=== PATIENT | male | born 1940 | race Caucasian/White ===

== ENCOUNTER 2017-07-23 22:10 | Emergency (ER) | payer BC ==
[2017-07-23 22:17] VITALS: BP 196/112; PULSE 53; TEMP 97.9; BMI 22.6
--- NOTE | 2017-07-23 22:51 | PDOC ---
History of Present Illness - General History Source: Patient Exam Limitations: No Limitations - History of Present Illness Initial Comments: 07/24/17 01:44 Patient is a 77 year old male with a significant past medical history of HTN who presents to the ED with complaints of superpubic tenderness that began earlier this week. Patient reports sitting on cough when he began to experience sudden onset of superpubic pain with no signs of subsiding. He reports superpubic pain is a localized hurting pain, that he states decreases when leaning over and increases when lying flat. Patient reports experiencing urinary frequency secondary to superpubic pain stating Nelida urinated 4 times since i've been in the ED. Denies chest pain, SOB. Denies nausea, vomiting. Denies fever, chills. Denies headache, dizziness. Denies trauma to affected area. Denies dysuria, hematuria, constipation. Denies any other symptoms. Allergies: None Social history: Former smoker (Last 1971). Social drinker. No illicit drugs. Surgical history: None PMD: Surinder <Zay Cobb - Last Filed: 07/24/17 01:44> <Bucky Crawley - Last Filed: 07/26/17 09:59> - General Chief Complaint: Pain, Acute Stated Complaint: ABD PAIN Time Seen by Provider: 07/23/17 22:50 Past History <Zay Cobb - Last Filed: 07/24/17 01:44> - Past Medical History COPD: No HTN: Yes - Suicide/Smoking/Psychosocial Hx Smoking History: Former smoker Have you smoked in the past 12 months: No Number of Cigarettes Smoked Daily: 20 If you are a former smoker, when did you quit?: 1971 Information on smoking cessation initiated: No Hx Alcohol Use: Yes (2 SHOTS A DAY) Drug/Substance Use Hx: No Substance Use Type: None <Bucky Crawley - Last Filed: 07/26/17 09:59> - Past Medical History Allergies/Adverse Reactions: Allergies Allergy/AdvReac Type Severity Reaction Status Date / Time No Known Allergies Allergy Verified 07/23/17 22:17 Home Medications: Ambulatory Orders Ibuprofen 600 mg PO TID #30 tablet 07/24/17 Review of Systems - Review of Systems Able to Perform ROS?: Yes Comments:: 07/24/17 01:44 GENERAL/CONSTITUTIONAL: No fever or chills. No weakness. HEAD, EYES, EARS, NOSE AND THROAT: No change in vision. No ear pain or discharge. No sore throat. CARDIOVASCULAR: No chest pain or shortness of breath. RESPIRATORY: No cough, wheezing, or hemoptysis. GASTROINTESTINAL: No nausea, vomiting, diarrhea or constipation. GENITOURINARY: No dysuria, frequency, or change in urination. MUSCULOSKELETAL: +Superpubic pain. No joint or muscle swelling. No neck or back pain. SKIN: No rash NEUROLOGIC: No headache, vertigo, loss of consciousness, or change in strength/ sensation. ENDOCRINE: No increased thirst. No abnormal weight change. HEMATOLOGIC/LYMPHATIC: No anemia, easy bleeding, or history of blood clots. ALLERGIC/IMMUNOLOGIC: No hives or skin allergy. All Other Systems: Reviewed and Negative <Zay Cobb - Last Filed: 07/24/17 01:44> *Physical Exam - Vital Signs Last Vital Signs Temp Pulse Resp BP Pulse Ox 97.9 F 53 L 20 196/112 98 07/23/17 22:13 07/23/17 22:13 07/23/17 22:13 07/23/17 22:13 07/23/17 22:13 - Physical Exam Comments: 07/24/17 01:44 GENERAL: Awake, alert, and fully oriented, in no acute distress HEAD: No signs of trauma EYES: PERRLA, EOMI, sclera anicteric, conjunctiva clear ENT: Auricles normal inspection, hearing grossly normal, nares patent, oropharynx clear without exudates. Moist mucosa NECK: Normal ROM, supple, no lymphadenopathy, JVD, or masses LUNGS: Breath sounds equal, clear to auscultation bilaterally. No wheezes, and no crackles HEART: Regular rate and rhythm, normal S1 and S2, no murmurs, rubs or gallops ABDOMEN: +Equal femoral pulses side to side. No pulsatile mass. No bruits. No clinical evidence of abdominal aortic aneurysm. Soft, nontender, normoactive bowel sounds. No guarding, no rebound. No masses EXTREMITIES: Normal range of motion, no edema. No clubbing or cyanosis. No cords, erythema, or tenderness NEUROLOGICAL: Cranial nerves II through XII grossly intact. Normal speech, normal gait SKIN: Warm, Dry, normal turgor, no rashes or lesions noted. <Zay Cobb - Last Filed: 07/24/17 01:44> - Vital Signs Last Vital Signs Temp Pulse Resp BP Pulse Ox 97.9 F 53 L 20 196/112 98 07/23/17 22:13 07/23/17 22:13 07/23/17 22:13 07/23/17 22:13 07/23/17 22:13 <Bucky Crawley - Last Filed: 07/26/17 09:59> ED Treatment Course - LABORATORY CBC & Chemistry Diagram: 07/24/17 00:45 07/24/17 00:45 - ADDITIONAL ORDERS Additional order review: Laboratory Results 07/24/17 07/24/17 07/24/17 00:45 00:45 00:45 PT with INR 10.40 INR 0.92 Sodium 141 Potassium 3.6 Chloride 104 Carbon Dioxide 27 Anion Gap 10 BUN 18 Creatinine 0.9 Creat Clearance w eGFR > 60 Random Glucose 100 Lactic Acid 1.5 Calcium 9.2 Total Bilirubin 0.5 D AST 26 D ALT 28 D Alkaline Phosphatase 84 Total Protein 7.2 Albumin 3.9 Urine Color Urine Appearance Urine pH Ur Specific [place] Urine Protein Urine Glucose (UA) Urine Ketones Urine Blood Urine Nitrite Urine Bilirubin Urine Urobilinogen 07/23/17 23:02 PT with INR INR Sodium Potassium Chloride Carbon Dioxide Anion Gap BUN Creatinine Creat Clearance w eGFR Random Glucose Lactic Acid Calcium Total Bilirubin AST ALT Alkaline Phosphatase Total Protein Albumin Urine Color Colorless Urine Appearance Clear Urine pH 8.0 Ur Specific [place] 1.006 Urine Protein Negative Urine Glucose (UA) Negative Urine Ketones Negative Urine Blood Negative Urine Nitrite Negative Urine Bilirubin Negative Urine Urobilinogen Negative 07/24/17 00:45 RBC 4.94 MCV 90.4 MCHC 34.1 RDW 14.5 MPV 9.7 Neutrophils % 77.2 Lymphocytes % 10.4 D Monocytes % 7.7 Eosinophils % 4.1 D Basophils % 0.6 <Zay Cobb - Last Filed: 07/24/17 01:44> - LABORATORY CBC & Chemistry Diagram: 07/24/17 00:45 07/24/17 00:45 <Bucky Crawley - Last Filed: 07/26/17 09:59> *DC/Admit/Observation/Transfer - Attestations Scribe Attestion: 07/24/17 01:44 Documentation prepared by Zay Cobb, acting as general medical practitioner for Bucky Crawley MD/. <Zay Cobb - Last Filed: 07/24/17 01:44> - Attestations Physician Attestion: 07/23/17 22:51 I, Dr. Bucky Crawley, attest that this document has been prepared under my direction and personally reviewed by me in its entirety. I further attest, that it accurately reflects all work, treatment, procedures and medical decision -making performed by me. <Bucky Crawley - Last Filed: 07/26/17 09:59> Diagnosis at time of Disposition: Kidney stone on left side Hydronephrosis Qualifiers: Hydronephrosis type: unspecified Qualified Code(s): N13.30 - Unspecified hydronephrosis - Discharge Dispostion Disposition: HOME Condition at time of disposition: Stable - Prescriptions Prescriptions: Ibuprofen 600 mg PO TID #30 tablet - Referrals Referrals: Lanre Corey MD [Primary Care Provider] - Dex Lynn MD., [Staff Physician] - - Patient Instructions Printed Discharge Instructions: DI for Kidney Stones Additional Instructions: Please follow up with your urologist or the one referred to you in the department. Please take medication as directed. Return if any problems - Post Discharge Activity
[2017-07-23 23:25] LABS: URINE APPEARANCE CLEAR; URINE BILIRUBIN NEGATIVE (NEGATIVE); URINE BLOOD NEGATIVE (NEGATIVE); URINE COLOR COLORLESS; URINE GLUCOSE (UA) NEGATIVE (NEGATIVE); URINE KETONE NEGATIVE (NEGATIVE); URINE LEUK ESTERASE NEGATIVE (NEGATIVE); URINE NITRITE NEGATIVE (NEGATIVE); URINE PROTEIN NEGATIVE (NEGATIVE); URINE UROBILINOGEN NEGATIVE mg/dL (0.2-1.0)
[2017-07-24 00:58] LABS: BASO # 0.1 # (0.1-1); BASO % 0.6 % (0-2.0); EOS # 0.4 # (0-4.5); EOS % 4.1 % (0-4.5); LYMPH # 0.9 (8-40); MCH 30.8 pg (25.7-33.7); MCHC 34.1 g/dl (32.0-35.9); MEAN CELL VOLUME 90.4 fl (80-96); MEAN PLT VOLUME 9.7 fl (7.5-11.1); MONO # 0.7 # (3.8-10.2); NEUT # 6.6 # (42.8-82.8); NEUT % 77.2 % (42.8-82.8); PLATELET COUNT 188 K/MM3 (134-434); RDW 14.5 % (11.9-15.9); WHITE BLOOD COUNT 8.6 K/mm3 (4.0-10.0)
[2017-07-24 01:14] LABS: INR 0.92 (0.82-1.09); PROTHROMBIN TIME (PATIENT) 10.4 SEC (9.98-11.88)
[2017-07-24 01:16] LABS: ALBUMIN 3.9 g/dl (3.4-5.0); ALK PHOS 84 U/L (45-117); ANION GAP 10 (8-16); BILIRUBIN,TOTAL 0.5 mg/dL (0.2-1.0); CALCIUM 9.2 mg/dL (8.5-10.1); CO2 27 mmol/L (21-32); CREATININE 0.9 mg/dL (0.7-1.3); GLUCOSE,RANDOM 100 mg/dL (74-106); SGOT/AST 26 U/L (15-37); SGPT/ALT 28 U/L (12-78); TOT PROT 7.2 g/dl (6.4-8.2)
--- NOTE | 2017-07-24 04:56 | PDOC ---
*Physical Exam - Vital Signs Last Vital Signs Temp Pulse Resp BP Pulse Ox 97.9 F 53 L 20 196/112 98 07/23/17 22:13 07/23/17 22:13 07/23/17 22:13 07/23/17 22:13 07/23/17 22:13 ED Treatment Course - LABORATORY CBC & Chemistry Diagram: 07/24/17 00:45 07/24/17 00:45 - ADDITIONAL ORDERS Additional order review: Laboratory Results 07/24/17 07/24/17 07/24/17 00:45 00:45 00:45 PT with INR 10.40 INR 0.92 Sodium 141 Potassium 3.6 Chloride 104 Carbon Dioxide 27 Anion Gap 10 BUN 18 Creatinine 0.9 Creat Clearance w eGFR > 60 Random Glucose 100 Lactic Acid 1.5 Calcium 9.2 Total Bilirubin 0.5 D AST 26 D ALT 28 D Alkaline Phosphatase 84 Total Protein 7.2 Albumin 3.9 Urine Color Urine Appearance Urine pH Ur Specific [place] Urine Protein Urine Glucose (UA) Urine Ketones Urine Blood Urine Nitrite Urine Bilirubin Urine Urobilinogen 07/23/17 23:02 PT with INR INR Sodium Potassium Chloride Carbon Dioxide Anion Gap BUN Creatinine Creat Clearance w eGFR Random Glucose Lactic Acid Calcium Total Bilirubin AST ALT Alkaline Phosphatase Total Protein Albumin Urine Color Colorless Urine Appearance Clear Urine pH 8.0 Ur Specific [place] 1.006 Urine Protein Negative Urine Glucose (UA) Negative Urine Ketones Negative Urine Blood Negative Urine Nitrite Negative Urine Bilirubin Negative Urine Urobilinogen Negative 07/24/17 00:45 RBC 4.94 MCV 90.4 MCHC 34.1 RDW 14.5 MPV 9.7 Neutrophils % 77.2 Lymphocytes % 10.4 D Monocytes % 7.7 Eosinophils % 4.1 D Basophils % 0.6 *DC/Admit/Observation/Transfer Diagnosis at time of Disposition: Kidney stone on left side Hydronephrosis Qualifiers: Hydronephrosis type: unspecified Qualified Code(s): N13.30 - Unspecified hydronephrosis - Discharge Dispostion Disposition: HOME Condition at time of disposition: Stable Admit: No - Referrals Referrals: Lanre Corey MD [Primary Care Provider] - Dex Lynn MD., MD [Staff Physician] - - Patient Instructions Printed Discharge Instructions: DI for Kidney Stones Additional Instructions: Please follow up with your urologist or the one referred to you in the department. Please take medication as directed. Return if any problems - Post Discharge Activity
[2017-07-24 11:33] LABS: URINE LEUK ESTERASE Negative (NEGATIVE)
== END 2017-07-24 05:06 | disposition home or self-care (01) ==
LOC: JER 22:10
DX: N13.2 Hydronephrosis with renal and ureteral calculous obstruction (principal)
CPT/HCPCS: 36415; 74176-TC; 80053; 81003; 83605; 85025; 85610; 87040; 87086; 99283-25

== ENCOUNTER 2017-09-17 05:12 | Day surgery (SDC) | payer BC ==
[2017-09-17 07:00] VITALS: TEMP 97.5; BMI 22.4
[2017-09-17] MEDS ORDERED: DEXAMETHASONE SOD PHOSPHATE 4 MG/1 ML VIAL ONE (08:43)
[2017-09-17] MEDS ORDERED: LIDOCAINE HCL/PF 2% SDV 5ML VIAL ONE (08:46)
[2017-09-17] MEDS ORDERED: PROPOFOL 20 ML ONE (08:46)
[2017-09-17] MEDS ORDERED: ePHEDrine SULFATE 50 MG/1 ML AMPULE ONE (08:59)
[2017-09-17] MEDS ORDERED: GLYCOPYRROLATE 0.2 MG/1 ML VIAL ONE (09:05)
[2017-09-17] MEDS ORDERED: IOHEXOL 180 MG/1 ML ML IT ONE (09:37)
[2017-09-17] MEDS ORDERED: oxyCODONE HCL 5 MG TABLET PO PRN (09:38)
--- NOTE | 2017-09-17 09:38 | OP ---
Operative Note - Note: Operative Date: 09/17/17 Pre-Operative Diagnosis: obstructing left distal ureteral stone Operation: cysto/left retrograde/ureteroscopy/laser lithotripsy/stone basketing/ stent Findings: obstructing 8mm LDU stone Post-Operative Diagnosis: Same as Pre-op Surgeon: Anthony Viveros Anesthesia: General Specimens Removed: stone frags Estimated Blood Loss (mls): 5 Drains & Tubes with Location: 7fr 24cm stent Operative Report Dictated: Yes
[2017-09-17] MEDS ORDERED: ONDANSETRON 4 MG/2 ML VIAL IVPUSH PRN (09:44)
[2017-09-17] MEDS ORDERED: ELECTROLYTE-148 SOLN 1,000 ML IV SCH (09:45)
[2017-09-17] MEDS ORDERED: LACTATED RINGERS SOLUTION 1,000 ML IV SCH (09:45)
[2017-09-17 10:38] VITALS: BP 134/77; PULSE 81
--- NOTE | 2017-09-17 10:52 | OP ---
DATE OF OPERATION: 09/17/2017 PREOPERATIVE DIAGNOSIS: Obstructing left distal ureteral stone. POSTOPERATIVE DIAGNOSIS: Obstructing left distal ureteral stone. PROCEDURE: Cystoscopy, ureteroscopy, laser lithotripsy, stone basketing, stent placement. SURGEON: Anthony Viveros MD INDICATIONS: Patient is a 77-year-old male with obstructing left distal ureteral stone, approximately 8 mm in size. After reviewing treatment options, he elected to undergo ureteroscopy and laser lithotripsy. Risks, benefits, and alternatives were discussed. DESCRIPTION OF PROCEDURE: The patient was taken to the OR, placed supine on the OR table. With cardiac monitoring administered and general anesthesia established, he was prepped and draped in dorsal lithotomy position. He was given 500 mg of IV Levaquin. At this point, the rigid cystoscope was introduced without difficulty. The anterior urethra was normal, prostatic urethra was 3 cm and visually occlusive. The bladder was visualized. Multiple small stones were noted in the bladder, and these were evacuated. Attention was then turned to the left ureteral orifice. It was intubated with the ureteral catheter. Contrast was injected for retrograde pyelogram. There was hydronephrosis down to the level of the distal ureter, where a calcified stone was seen. Guidewire was negotiated beyond the stone. Alongside the guidewire, a semi-rigid ureteroscope was advanced into the distal ureter where the stone was seen, somewhat impacted in the distal ureter. Using the 365 micron laser fiber, the stone was pulverized into fine dust of 1- to 2-mm fragments at a setting of 0.8 joules and 6 htz until the entire stone bulging was fragmented. Several fragments were removed with the stone basket and sent to Pathology for analysis. Repeat ureteroscopy revealed no other evidence of any residual large stone fragments. Ureteroscope was then removed, and a 7-Polish 24-cm double pigtail stent was then advanced in a monorail fashion. Fluoroscopy confirmed this stent to be in good position. Patient was awoken from anesthesia and transferred to recovery room in stable condition. There were no complications. ESTIMATED BLOOD LOSS: Minimal. Fernando [id number]
[2017-09-17] MEDS ORDERED: oxyCODONE HCL 5 MG TABLET ONE (11:50)
--- NOTE | 2017-09-18 16:35 | PATH ---
Surgical Pathology Report Patient Name: ERNESTO NARVAEZ [facility]. Rec. #: [id number] /Age/Gender: 1940 (Age: 77) / M Account: [id number] Location: [facility] SURGICAL Taken: 09/17/2017 Received: 09/17/2017 Reported: 09/18/2017 Physicians: Anthony Viveros M.D. Specimen(s) Received RENAL STONE Clinical History Left ureteral stones, renal stones Final Diagnosis RENAL STONES, REMOVAL/PASSAGE: RENAL CALCULI. MACROSCOPIC DIAGNOSIS. Electronically Signed Katie Ceja M.D. Gross Description Received fresh labeled "renal stones," is a 1.0 x 0.8 x 0.2 cm aggregate of pablo, fragmented calculi. The specimen is sent for chemical analysis. 09/17/201709/17/2017
[2017-09-29 14:14] LABS: CA OXALATE MONOHYDR. 10 % (.); CALCIUM PHOSPHATE 40 % (.); WEIGHT 66.2 mg (.)
== END 2017-09-17 14:45 | disposition home or self-care (01) ==
LOC: JASU-SURG 05:12
PROVIDERS: ATTEND Urology
PROC: 0TF78ZZ Fragmentation in Left Ureter, Via Natural or Artificial Opening Endoscopic (ICD-10-PCS; principal; 2017-09-17 08:15)
PROC: 0T778DZ Dilation of Left Ureter with Intraluminal Device, Via Natural or Artificial Opening Endoscopic (ICD-10-PCS; 2017-09-17 08:15)
DX: N20.1 Calculus of ureter (principal)
CPT/HCPCS: 36415; 76000-TC-FY; 82360; 88300-TC; 94760

== ENCOUNTER 2018-11-13 23:30 | Emergency (ER) | payer BC, OTHER ==
--- NOTE | 2018-11-13 23:33 | PDOC ---
History of Present Illness - General Chief Complaint: Injury Stated Complaint: FALL Time Seen by Provider: 11/13/18 23:33 History Source: Patient, Family Exam Limitations: No Limitations - History of Present Illness Initial Comments: 11/13/18 23:34 Mr. Peters is a 78 yo M with a h/o HTn who presents to the ER with family s/p a fall from standing height Pt was at the [employer] and was going to get his vehicle outside. It was dark and he lost his footing, falling forward He struck his face and his hand No LOC No Amnesia He assisted himself to standing and returned into the facility to alert his family He denies preceding chest pain, shortness of breath, palpitations, focal weakness or numbness He currently denies pain but his family is concerned about his nose which appears to be deformed to them AND was bleeding at the facility He also notes that his left hand has bruising Tetanus 2015 Denies chest pain, SOB. Denies nausea, vomiting. Denies fever, chills. Denies headache, dizziness. Denies trauma to affected area. Denies dysuria, hematuria, constipation. Denies any other symptoms. Allergies: None Social history: Former smoker (Last 1971). Social drinker. No illicit drugs. Surgical history: None PMD: Surinder ROS: GENERAL/CONSTITUTIONAL: No: fever, chills, weakness, loss of appetite. HEAD, EYES, EARS, NOSE AND THROAT: No: change in vision, ear pain, discharge, sore throat, throat swelling. CARDIOVASCULAR: No: chest pain, lightheadedness, palpitations, syncope RESPIRATORY: No: cough, shortness of breath, wheezing, hemoptysis, stridor. GASTROINTESTINAL: No: nausea, vomiting, diarrhea, abdominal pain GENITOURINARY: No: dysuria, hematuria, frequency, urgency, flank pain. MUSCULOSKELETAL: No: back pain, neck pain, joint pain, muscle swelling or pain SKIN: No: lesions, pallor, rash or easy bruising. NEUROLOGIC: No: headache, vertigo, paresthesias, weakness ENDOCRINE: No: unexplained weight gain or loss HEMATOLOGIC/LYMPHATIC: No: anemia, easy bleeding, swelling nodes. PE: GENERAL: The patient is in no acute distress. HEAD: (+) facial trauma EYES: PERRLA (4mm --> 2mm), EOMI, sclera anicteric, conjunctiva clear. ENT: Ears normal, no small sign, no periorbital bruising, nasal bridge swollen , dried blood at nares superficial abrasion bottom lip 8mm laceration to right lower lip mucosa No loose teeth Bite normal NECK: Normal range of motion, supple without midline tenderness or deformity. LUNGS: Breath sounds equal, clear to auscultation bilaterally. No wheezes, and no crackles. HEART:Regular rate and rhythm, normal S1 and S2 without murmur, rub or gallop. ABDOMEN: Soft, nontender, No guarding, no rebound EXTREMITIES: Normal range of motion (except right shoulder which is arthritic and is limited), Left thenar eminence bruising noted R/M/U motor and sensory function nml No snuff box tenderness, no wrist tenderness NEUROLOGICAL: Cranial nerves II through XII grossly intact. Normal speech. No focal neurological deficits. Hard of hearing MUSCULOSKELETAL: no thoracic or lumbar tenderness to palpation, no rib tenderness to palpation SKIN: abrasion skin beneath right lower lip Bruising thenar eminence left hand 11/13/18 23:45 11/13/18 23:56 Past History - Past Medical History Allergies/Adverse Reactions: Allergies Allergy/AdvReac Type Severity Reaction Status Date / Time No Known Allergies Allergy Verified 09/17/17 06:47 Home Medications: Ambulatory Orders Amlodipine Besylate/Benazepril [Lotrel 5-10 mg Capsule] 1 each PO DAILY Atorvastatin Ca [Lipitor] 10 mg PO HS 09/14/17 Flaxseed/Omega3,6,9/Fatty Acid [Flax Seed Oil 1,300 mg Softgel] 1 each PO DAILY 09/14/17 Multivitamin [One Daily] 1 each PO DAILY 09/14/17 [place]-3S/Dha/Epa/Fish Oil [Fish Oil [place]-3 Softgel] 1 each PO DAILY 09/14/17 Aspirin Coated [Ecotrin -] 81 mg PO DAILY 09/17/17 Anemia: No Asthma: No Cancer: No Cardiac Disorders: No CVA: No COPD: No CHF: No Dementia: No Diabetes: No GI Disorders: No Disorders: No HTN: Yes Hypercholesterolemia: Yes Liver Disease: No Seizures: No Thyroid Disease: No - Immunization History Immunization Up to Date: Yes - Suicide/Smoking/Psychosocial Hx Smoking History: Never smoked Have you smoked in the past 12 months: No Number of Cigarettes Smoked Daily: 20 If you are a former smoker, when did you quit?: 1971 Hx Alcohol Use: Yes (1 day) Drug/Substance Use Hx: No Substance Use Type: None Hx Substance Use Treatment: No Medical Decision Making - Medical Decision Making 11/13/18 23:51 78 yo M h/o HTN on NO ANTICOAGULANTS who presents s/p mechanical fall this evening while walking in the dark to find his car No LOC, No Amnesia Pt with signs of facial trauma will do: CT head/C spine/Facial bones Boostrix Left hand non tender but bruised will advise they follow up for x ray if there is any pain Pt refusing tylenol Anticipate discharge 11/14/18 00:22 CT HEAD: FINDINGS: Brain parenchyma is normal in attenuation with no mass or hematoma. There is no midline shift. Z[place] and white matter differentiation is normal. Ventricles are mildly prominent Sulci and extra-axial CSF spaces are normal. Intracranial vascular structures are normal in attenuation. There is no calvarial fracture. Paranasal sinuses are normally aerated. IMPRESSION: Mild atrophic change CT CERVICAL SPINE: HISTORY: Trauma COMPARISON: None. FINDINGS: Vertebral bodies appear normal with no fracture There are degenerative changes with intervertebral disc space narrowing at the level of C3-C7 Airway is intact Soft Tissues are normal Pulmonary apices are normal IMPRESSION: Degenerative changes with no cervical spine fracture CT FACIAL BONES: HISTORY: Trauma COMPARISON: None. FINDINGS: Nasal Bones: no fracture Orbits and globes: normal Zygomatic areches: Normal with no fracture Mandaible:Normal with no fracture Soft tissues: There is soft tissue thickening overlying the nasal bridge and the nasal bones and involving the nasal septum. There is no associated displaced fracture IMPRESSION: Soft tissue thickening involving the nose likely related to hematoma without fracture 11/14/18 00:27 Will discharge to home Follow up with PMD Tylenol for pain *DC/Admit/Observation/Transfer Diagnosis at time of Disposition: Swelling of nose Injury of head Qualifiers: Encounter type: initial encounter Qualified Code(s): S09.90XA - Unspecified injury of head, initial encounter Abrasion of lip Qualifiers: Encounter type: initial encounter Qualified Code(s): S00.511A - Abrasion of lip , initial encounter - Discharge Dispostion Disposition: HOME Condition at time of disposition: Stable Decision to Admit order: No - Referrals Referrals: Mirza Wood MD [Primary Care Provider] - - Patient Instructions Printed Discharge Instructions: DI for Closed Head Injury, How to Prevent Falls , DI for Abrasion Additional Instructions: Mr Peters, Thank you for coming in to the ER today So sorry that you fell Please apply ice to the bridge of your nose to help with the swelling The cut on the inside of your mouth will heal but it will be important to avoid getting food stuck in there Return to the emergency department immediately with ANY new or worsening symptoms. Continue any medications as previously prescribed by your physician. You should follow up with your primary doctor as soon as possible regarding today's emergency department visit. Please make sure your doctor reviews the results of your emergency evaluation. Thank you for coming to the [facility] today for your care. It was a pleasure to see you today. Please note that your evaluation is INCOMPLETE until you follow-up with your doctor. - Post Discharge Activity
[2018-11-13] MEDS ORDERED: DIPHTH,PERTUSS(ACELL),TET 0.5 ML DISP.SYRIN IM ONE ×2 (23:43→23:52)
[2018-11-13 23:51] VITALS: BP 133/84; PULSE 89; TEMP 98.4; BMI 22.4
[2018-11-13] MEDS ORDERED: REFRIGERATED ANITBIOTICS ONE (23:58)
== END 2018-11-14 00:37 | disposition home or self-care (01) ==
LOC: FER 23:30
DX: S09.90XA Unspecified injury of head, initial encounter (principal); Z87.891 Personal history of nicotine dependence; R22.0 Localized swelling, mass and lump, head; S00.511A Abrasion of lip, initial encounter; I10 Essential (primary) hypertension; E78.00 Pure hypercholesterolemia, unspecified; W17.89XA Other fall from one level to another, initial encounter; Y93.89 Activity, other specified; Y92.29 Other specified public building as the place of occurrence of the external cause
CPT/HCPCS: 70450-TC; 70486-TC; 72125-TC; 99282-25

== ENCOUNTER 2019-06-23 08:20 | Day surgery (SDC) | payer OTHER ==
[2019-06-22 12:26] VITALS: BMI 23.1
[2019-06-23] MEDS ORDERED: MIDAZOLAM HCL 2 MG/2 ML SINGLE DOSE VIAL ONE (08:50)
[2019-06-23] MEDS ORDERED: PROPOFOL 20 ML ONE ×2 (08:52→10:10)
[2019-06-23] MEDS ORDERED: DEXAMETHASONE SOD PHOSPHATE 4 MG/1 ML VIAL ONE ×2 (08:53→10:09)
[2019-06-23] MEDS ORDERED: KETOROLAC TROMETHAMINE 30 MG/1 ML VIAL ONE (08:53)
[2019-06-23] MEDS ORDERED: ONDANSETRON 4 MG/2 ML VIAL IVPUSH PRN (09:08)
[2019-06-23] MEDS ORDERED: LACTATED RINGERS SOLUTION 1,000 ML IV SCH (09:15)
[2019-06-23] MEDS ORDERED: ceFAZolin 2 GRAM PREMIX BAG IVPB ONE (09:32)
[2019-06-23] MEDS ORDERED: GENTAMICIN SO4 80 MG/2 ML VIAL IVPB ONE (09:34)
[2019-06-23] MEDS ORDERED: GLYCOPYRROLATE 0.2 MG/1 ML VIAL ONE (09:46)
[2019-06-23] MEDS ORDERED: SODIUM CHLORIDE 0.9% P/F 10 ML VIAL IJ ONE (09:56)
[2019-06-23] MEDS ORDERED: FUROSEMIDE 40 MG/4 ML INJECTABLE VIAL ONE (10:01)
[2019-06-23] MEDS ORDERED: SUCCINYLCHOLINE CHLORIDE 200 MG/10 ML SYRINGE ONE (10:01)
[2019-06-23] MEDS ORDERED: ROCURONIUM BROMIDE 50 MG/5 ML SYRINGE ONE (10:01)
[2019-06-23] MEDS ORDERED: LIDOCAINE HCL/PF 2% SDV 5ML VIAL ONE (10:09)
[2019-06-23] MEDS ORDERED: oxyCODONE HCL 5 MG TABLET PO PRN (10:49)
--- NOTE | 2019-06-23 10:51 | OP ---
Operative Note - Note: Operative Date: 06/23/19 Pre-Operative Diagnosis: bilateral ureteral stones Post-Operative Diagnosis: Same as Pre-op (plus bladder stone) Anesthesia: General Operative Report Dictated: Yes
[2019-06-23] MEDS ORDERED: ELECTROLYTE-148 SOLN 1,000 ML IV SCH (11:00)
--- NOTE | 2019-06-23 13:23 | OP ---
DATE OF OPERATION: 06/23/2019 PREOPERATIVE DIAGNOSIS: Bilateral ureteral stones. POSTOPERATIVE DIAGNOSIS: Left ureteral stone and bladder stone. PROCEDURE: Cystoscopy, bilateral retrograde pyelogram, bilateral ureteroscopy, bilateral ureteral stent placement, left laser lithotripsy and stone basketing, and laser lithotripsy of bladder stone. INDICATIONS: Patient is an 79-year-old male with a history of recurrent nephrolithiasis. Most recent CT scan showed a 1-cm stone in the left distal ureter causing hydronephrosis as well as stones in her right distal ureter causing hydronephrosis. He was taken to the OR for ureteroscopy, laser lithotripsy. Risks, benefits, and alternatives discussed. DESCRIPTION OF PROCEDURE: After informed consent was obtained, patient was taken to the OR and placed supine on the table. After cardiac monitoring administered and general anesthesia established, he was prepped and draped in the dorsal lithotomy position. The 23 sheath cystoscope was inserted without difficulty. Anterior urethra was normal. Prostatic urethra was 4 cm and visually occlusive. The bladder was then visualized. Approximately an 8-mm stone was seen in the bladder. Using the Holmium laser fiber, the stone was pulverized to fine dust in 2- to 3-mm fragments, and these were removed with the [employer] evacuator. With the bladder stone now removed, attention was turned to the left ureteral orifice. This was intubated with ureteral catheter. Contrast was injected for retrograde pyelogram. There was hydronephrosis down to the level of the distal ureter where a stone was seen. Guidewire was advanced beyond the stone, and a semirigid ureteroscope was advanced into the left distal ureter, and an approximately 6-mm stone was seen there, and this was pulverized to fine dust once we removed any fragments, and these fragments were then removed and sent to Pathology for analysis. Repeat left ureteroscopy revealed no residual stone fragments. Ureteroscope was then removed, and a 7-Malaysian 24-cm double pigtail stent was then passed in the left ureter. Fluoroscopy confirmed stent to be in good position. Attention was turned to the patient's right side. Contrast injected for retrograde pyelogram. There was some fullness in the collecting system but no stone noted or filling defect noted, but in light of the prior CAT scan findings, I elected to perform a ureteroscopy. The distal and mid ureter were inspected, and no stone was noted. Ureteroscope was then removed, and a 7-Malaysian 24-cm double pigtail stent was then advanced in a monorail fashion on the patient's right side. Again, fluoroscopy confirmed this to be in good position. Patient awoken from anesthesia and transferred to recovery in stable condition. There were no complications. Estimated blood loss was minimal. FIDEL ANDUJAR M.D. [id number]
[2019-06-23 16:49] VITALS: BP 121/60; PULSE 100; TEMP 97.5
--- NOTE | 2019-06-24 15:43 | PATH ---
Surgical Pathology Report Patient Name: ERNESTO NARVAEZ [facility]. Rec. #: [id number] /Age/Gender: 1940 (Age: 79) / M Account: [id number] Location: [facility] SURGICAL Taken: 06/23/2019 Received: 06/23/2019 Reported: 06/24/2019 Physicians: Anthony Viveros M.D. Specimen(s) Received URETERAL STONES Clinical History Calculus of ureter Final Diagnosis URETERAL STONES, LASER LITHOTRIPSY: URETEROLITHIASIS. MACROSCOPIC DIAGNOSIS. Electronically Signed Katie Ceja M.D. Gross Description Received in formalin labeled "ureteral stones," is a 2.1 x 1.8 x 0.4 cm aggregate of pablo, irregular to fragmented calculi. The formalin is drained and the specimen is dried and sent for chemical analysis. /06/23/2019 saudi06/23/2019
== END 2019-06-23 14:50 | disposition home or self-care (01) ==
LOC: JASU-SURG 08:20
PROVIDERS: ATTEND Urology
PROC: 0TCB8ZZ Extirpation of Matter from Bladder, Via Natural or Artificial Opening Endoscopic (ICD-10-PCS; principal; 2019-06-23 10:30)
PROC: 0TF78ZZ Fragmentation in Left Ureter, Via Natural or Artificial Opening Endoscopic (ICD-10-PCS; 2019-06-23 10:30)
PROC: 0TF68ZZ Fragmentation in Right Ureter, Via Natural or Artificial Opening Endoscopic (ICD-10-PCS; 2019-06-23 10:30)
PROC: 0T788DZ Dilation of Bilateral Ureters with Intraluminal Device, Via Natural or Artificial Opening Endoscopic (ICD-10-PCS; 2019-06-23 10:30)
DX: N20.1 Calculus of ureter (principal); N21.0 Calculus in bladder
CPT/HCPCS: 36415; 76000-TC-FY; 82360; 88300-TC; 94760

== ENCOUNTER 2019-07-04 14:19 | Observation (INO) | payer OTHER ==
--- NOTE | 2019-07-04 15:24 | PDOC ---
History of Present Illness - General Chief Complaint: Blood Pressure Problem Stated Complaint: SENT BY PCP/HYPERTENSION Time Seen by Provider: 07/04/19 14:47 History Source: Patient Exam Limitations: No Limitations Past History - Travel Traveled outside of the country in the last 30 days: No Close contact w/someone who was outside of country & ill: No - Past Medical History Allergies/Adverse Reactions: Allergies Allergy/AdvReac Type Severity Reaction Status Date / Time No Known Allergies Allergy Verified 07/04/19 14:28 Home Medications: Ambulatory Orders Unobtainable 07/05/19 Anemia: No Asthma: No Cancer: No Cardiac Disorders: No CVA: No COPD: No CHF: No Dementia: No Diabetes: No GI Disorders: No Disorders: No HTN: Yes Hypercholesterolemia: Yes Liver Disease: No Seizures: No Thyroid Disease: No - Immunization History Immunization Up to Date: Yes - Psycho Social/Smoking Cessation Hx Smoking History: Never smoked Have you smoked in the past 12 months: No Number of Cigarettes Smoked Daily: 20 If you are a former smoker, when did you quit?: 1972 Hx Alcohol Use: Yes (1 day) Drug/Substance Use Hx: No Substance Use Type: None Hx Substance Use Treatment: No Review of Systems - Review of Systems Able to Perform ROS?: Yes Comments:: 07/04/19 19:29 CONSTITUTIONAL: Absent: fever, chills, diaphoresis, generalized weakness, malaise, loss of appetite HEENT: Absent: rhinorrhea, nasal congestion, throat pain, throat swelling, difficulty swallowing, mouth swelling, ear pain, eye pain, visual Changes CARDIOVASCULAR: Absent: chest pain, loss of consciousness, palpitations, irregular heart rate, peripheral edema RESPIRATORY: Absent: cough, shortness of breath, dyspnea with exertion, orthopnea, wheezing, stridor, hemoptysis GASTROINTESTINAL: Absent: abdominal pain, abdominal distension, nausea, vomiting, diarrhea, constipation, melena, hematochezia GENITOURINARY: Absent: dysuria, frequency, urgency, hesitancy, hematuria, flank pain, genital pain MUSCULOSKELETAL: Absent: myalgia, arthralgia, joint swelling SKIN: Absent: rash, itching, pallor HEMATOLOGIC/IMMUNOLOGIC: Absent: easy bleeding, easy bruising, lymphadenopathy, frequent infections ENDOCRINE: Absent: unexplained weight gain, unexplained weight loss, heat intolerance, cold intolerance NEUROLOGIC: Present: Lightheadedness. Absent: headache, focal weakness or paresthesias, dizziness, unsteady gait, seizure, mental status changes, bladder or bowel incontinence PSYCHIATRIC: Absent: anxiety, depression, suicidal or homicidal ideation, hallucinations. Is the patient limited Kiswahili proficient: No *Physical Exam - Vital Signs Last Vital Signs Temp Pulse Resp BP Pulse Ox 97.3 F L 81 18 100/58 L 98 07/04/19 14:23 07/04/19 14:23 07/04/19 14:23 07/04/19 14:23 07/04/19 14:23 - Physical Exam 07/04/19 19:29 GENERAL: Well developed, well nourished. Awake and alert. No acute distress. HEENT: Normocephalic, atraumatic. PERRLA, EOMI. No conjunctival pallor. Sclera are non- icteric. Moist mucous membranes. Oropharynx is clear. NECK: Supple. Full ROM. No JVD. Carotid pulses 2+ and symmetric, without bruits. No thyromegaly. No lymphadenopathy. CARDIOVASCULAR: Regular rate and rhythm. No murmurs, rubs, or gallops. Distal pulses are 2+ and symmetric. PULMONARY: No evidence of respiratory distress. Lungs clear to auscultation bilaterally. No wheezing, rales or rhonchi. ABDOMINAL: Soft. Non-tender. Non-distended. No rebound or guarding. No organomegaly. Normoactive bowel sounds. MUSCULOSKELETAL Normal range of motion at all joints. No bony deformities or tenderness. No CVA tenderness. EXTREMITIES: No cyanosis. No clubbing. No edema. No calf tenderness. SKIN: Warm and dry. Normal capillary refill. No rashes. No jaundice. NEUROLOGICAL: Alert, awake, appropriate. Cranial nerves 2-12 intact. No deficits to light touch and temperature in face, upper extremities and lower extremities. No motor deficits in the in face, upper extremities and lower extremities. Normoreflexic in the upper and lower extremities. Normal speech. Toes are down- going bilaterally. Gait is normal without ataxia. PSYCHIATRIC: Cooperative. Good eye contact. Appropriate mood and affect. ED Treatment Course - LABORATORY CBC & Chemistry Diagram: 07/05/19 05:50 07/05/19 05:50 Medical Decision Making - Medical Decision Making 07/04/19 19:29 The patient is an 79-year-old male past medical history of hypertension, hyperlipidemia, kidney stones, presents to the ER today for evaluation of low blood pressure. Patient is with his nephew. His son states that he and the patient read Dr. Wood's office for follow-up after his stent removal for kidney stones today and the patient had a pressure of 80/60. The patient was seen by Dr. Jaimes and had a negative urinalysis in the office today. He was told to come to the ER for further evaluation given that he has been lightheaded and not quite acting like himself. Patient is unsure as to which medications he is taking at this time. He has no complaints other than lightheadedness. A/P: Hypotension On exam lungs are clear to auscultation bilaterally, heart regular rate and rhythm with no murmurs rubs or gallops. Patient is grossly neurologically intact. Triage blood pressure 100/60 EKG shows sinus rhythm at 87 bpm with frequent and consecutive PVCs. Normal intervals and axis. No acute ST-T wave changes. Urine shows 2+ leuks with 30 blood cells. patient is currently on doxycycline. Upon pill reconciliation, patient still has 4 days left of treatment and the medication was filled on 23 June. Blood work shows DAVID. BUN 40 CR 1.5. Consulted with Dr. Wood. Patient's BUN and creatinine were halved in June (20/0.8) Given setting of acute renal injury with recent procedure and hypotension, will admit the patient for observation and fluid management Patient [facility] Obs understand Dr. Wood. Discharge - Discharge Information Problems reviewed: Yes Clinical Impression/Diagnosis: DAVID (acute kidney injury) Condition: Stable - Admission Yes - Follow up/Referral - Patient Discharge Instructions - Post Discharge Activity
[2019-07-04 16:04] LABS: BASO % 0.2 % (0-2.0); EOS % 1.8 % (0-4.5); HEMATOCRIT 41.7 % (35.4-49); HEMOGLOBIN 14.1 GM/dL (11.7-16.9); LYMPH % 5.7 % (8-40); MCH 30.6 pg (25.7-33.7); MCHC 33.8 g/dl (32.0-35.9); MEAN CELL VOLUME 90.5 fl (80-96); MEAN PLT VOLUME 9.9 fl (7.5-11.1); MONO % 11.7 % (3.8-10.2); NEUT % 80.6 % (42.8-82.8); PLATELET COUNT 180 K/MM3 (134-434); RDW 13.8 % (11.9-15.9); WHITE BLOOD COUNT 10.9 K/mm3 (4.0-10.0)
[2019-07-04 16:16] LABS: EPI CELLS 1.7 /HPF (0-5/HPF); HYALINE CASTS 14 /lpf (0-8); PH,URINE 5.5 (5.0-8.0); URINE APPEARANCE TURBID; URINE BACTERIA 32.5 /hpf (NEGATIVE); URINE BILIRUBIN NEGATIVE (NEGATIVE); URINE COLOR DK YELLOW; URINE GLUCOSE (UA) NEGATIVE (NEGATIVE); URINE KETONE TRACE (NEGATIVE); URINE LEUK ESTERASE 2+ (NEGATIVE); URINE NITRITE NEGATIVE (NEGATIVE); URINE PROTEIN 3+ (NEGATIVE); URINE WBC 208 /hpf (0-5)
[2019-07-04] MEDS ORDERED: SODIUM CHLORIDE 1,000 ML IV STA (16:21)
[2019-07-04 16:36] LABS: ALBUMIN 2.5 g/dl (3.4-5.0); ALK PHOS 138 U/L (45-117); ANION GAP 10 MMOL/L (8-16); BILIRUBIN,TOTAL 0.8 mg/dL (0.2-1); BLOOD UREA NITROGEN 41.7 mg/dL (7-18); CHLORIDE 102 mmol/L (98-107); CO2 27 mmol/L (21-32); CREATININE 1.5 mg/dL (0.55-1.3); GLUCOSE,RANDOM 87 mg/dL (74-106); POTASSIUM 3.5 mmol/L (3.5-5.1); SGOT/AST 40 U/L (15-37); SGPT/ALT 49 U/L (13-61); SODIUM 138 mmol/L (136-145)
[2019-07-04 16:44] LABS: URINE RBC 157.6 /hpf (0-4); YEAST 3+ (NEGATIVE)
[2019-07-04] MEDS ORDERED: CEFTRIAXONE 1,000 MG in DEXTROSE 5%-WATER - 50 ML IVPB ONE (17:10)
[2019-07-04] MEDS ORDERED: SODIUM CHLORIDE 1,000 ML IV SCH (18:00)
[2019-07-04] MEDS ORDERED: CEFTRIAXONE 1 GM/50 ML BAG ONE (18:34)
[2019-07-05 07:13] LABS: BASO % 0.2 % (0-2.0); EOS % 4.2 % (0-4.5); HEMATOCRIT 38.4 % (35.4-49); HEMOGLOBIN 12.9 GM/dL (11.7-16.9); LYMPH % 5.3 % (8-40); MCH 30.3 pg (25.7-33.7); MCHC 33.6 g/dl (32.0-35.9); MEAN CELL VOLUME 90.2 fl (80-96); MEAN PLT VOLUME 10.2 fl (7.5-11.1); MONO % 10.4 % (3.8-10.2); NEUT % 79.9 % (42.8-82.8); PLATELET COUNT 180 K/MM3 (134-434); RBC 4.26 M/mm3 (4.00-5.60); RDW 13.9 % (11.9-15.9); WHITE BLOOD COUNT 11.7 K/mm3 (4.0-10.0)
[2019-07-05 07:31] LABS: ALBUMIN 2.2 g/dl (3.4-5.0); BILIRUBIN,TOTAL 0.7 mg/dL (0.2-1); BLOOD UREA NITROGEN 36.8 mg/dL (7-18); CALCIUM 8.2 mg/dL (8.5-10.1); CREATININE 1.2 mg/dL (0.55-1.3); TOT PROT 5.3 g/dl (6.4-8.2)
--- NOTE | 2019-07-05 09:25 | EKG ---
Test Reason : Blood Pressure : / mmHG Vent. Rate : 087 BPM Atrial Rate : 087 BPM P-R Int : 120 ms QRS Dur : 090 ms QT Int : 394 ms P-R-T Axes : 070 048 054 degrees QTc Int : 474 ms SINUS RHYTHM WITH FREQUENT and consecutive PREMATURE VENTRICULAR COMPLEXES ABNORMAL ECG WHEN COMPARED WITH ECG OF 14-SEP-2017 12:05, PREMATURE VENTRICULAR COMPLEXES ARE NOW PRESENT CRITERIA FOR SEPTAL INFARCT ARE NO LONGER PRESENT Confirmed by MD Josias, Price ([id number]) on 07/05/2019 9:25:03 AM Referred By: Confirmed By:Price Ferrara MD
[2019-07-05] MEDS ORDERED: CEFTRIAXONE 1 GM in DEXTROSE 5%-WATER - 50 ML IVPB SCH (10:00)
[2019-07-05] MEDS ORDERED: cefTRIAXone SODIUM 1 GM VIAL ONE (11:04)
[2019-07-05] MEDS ORDERED: DEXTROSE 5%-WATER - 50 ML IVPB ONE (11:05)
[2019-07-05 11:29] VITALS: BP 154/84; PULSE 68; TEMP 98.9; BMI 21.3
[2019-07-05] MEDS ORDERED: POTASSIUM CHLORIDE TABS 20 MEQ TABLET.ER (FP) PO ONE (11:47)
--- NOTE | 2019-07-05 12:04 | HP ---
Admitting History and Physical - Admission Chief Complaint: 79 y.o M was seen by PMD in the office yesterday with generalized weakness, mild confusion and low BP 80/40. He was not drinking fluids and was not sure about taking his BP meds. He was taking oral ABX after lithotripsy recently. He was sent to the ER [facility]. His labs showed DAVID with elevation of Creat from 0.8 to 1.5 and UA showed many WBC, RBC. The Urine cx was obtained and the patient was started on IV NS and was given IV Ceftriaxone and placed under observation. History of Present Illness: HTN Kidney stones. Lithotripsy. 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: Alzheimer's, CVA, Dementia, Migraine, Multiple Sclerosis, Peripheral Neuropathy, Parkinson's, Seizure, Syncope, TIA, Vertigo, Other Cardiovascular: Yes: HTN Gastrointestinal: No: Ascites, Cancer, Constipation, Crohn's Disease, Diverticulitis, Diverticulosis, Esophageal Varices, Gastritis, GERD, GI Bleed, Hemorrhoids, Hiatal Hernia, Inflamatory Bowel Disease, Irritable Bowel Disease, Pancreatitis, Peptic Ulcer Disease, Ulcerative Colitis, Other Hepatobiliary: No: Cirrhosis, Cholelithiasis, Cholecystitis, Choledocholithiasis , Hepatitis A, Hepatitis B, Hepatitis C, Other Renal/: Yes: Renal Calculi, UTI Heme/Onc: No: Anemia, B12 Deficiency, Bleeding Disorder, Cancer, Current Chemotherapy, Current Radiation Therapy, Hemochromatosis, Hypercoaguable State, Myeloproliferative Synd, Sickle Cell Disease, Sickle Cell Trait, Thrombocytopenia, Other Infectious Disease: No: AIDS, C-Diff, Herpes Zoster, HIV, MRSA, STD's, Tuberculosis, VREF, Other Psych: No: Addictions, Anxiety, Bipolar, Depression, Panic, Psychosis, Schizophrenia, Other ENT: No: Allergic Rhinitis, Sinusitis, Other Dermatology: No: Basal Cell, Cellulitis, Eczema, Melanoma, Psoriasis, Squamous Cell, Other - Past Surgical History Additional Past Surgical History: Lithotripsy - Smoking History Smoking history: Former smoker Have you smoked in the past 12 months: No Aproximately how many cigarettes per day: 20 If you are a former smoker, when did you quit?: 1972 - Alcohol/Substance Use Hx Alcohol Use: Yes (vodka) Home Medications - Allergies Allergies/Adverse Reactions: Allergies Allergy/AdvReac Type Severity Reaction Status Date / Time No Known Allergies Allergy Verified 07/04/19 14:28 - Home Medications Home Medications: Ambulatory Orders Alfuzosin HCl [Uroxatral] 10 mg PO DAILY #10 tab.er.24h 07/05/19 Aspirin Coated [Ecotrin -] 81 mg PO DAILY 07/05/19 Atorvastatin Ca [Lipitor] 10 mg PO HS 07/05/19 Cefuroxime Axetil [Ceftin -] 250 mg PO BID #14 tablet 07/05/19 Family Medical History Family History: Unremarkable Review of Systems - Review of Systems Constitutional: reports: No Symptoms Eyes: reports: No Symptoms HENT: reports: Hearing Loss Cardiovascular: reports: No Symptoms Respiratory: reports: No Symptoms Gastrointestinal: reports: Other (Burping) Breasts: reports: No Symptoms Reported Musculoskeletal: reports: No Symptoms Integumentary: reports: No Symptoms Neurological: reports: No Symptoms Endocrine: reports: No Symptoms Hematology/Lymphatic: reports: No Symptoms Psychiatric: reports: No Symptoms Physical Examination Vital Signs: Vital Signs Temperature 98.9 F 07/05/19 11:10 Pulse Rate 68 07/05/19 11:10 Respiratory Rate 22 H 07/05/19 11:10 Blood Pressure 154/84 07/05/19 11:10 O2 Sat by Pulse Oximetry (%) 96 07/05/19 09:45 Constitutional: Yes: No Distress, Calm Eyes: Yes: Conjunctiva Clear, EOM Intact HENT: Yes: Normocephalic, Nasal Congestion Neck: Yes: Supple, Trachea Midline Cardiovascular: Yes: Regular Rate and Rhythm, S1, S2 Respiratory: Yes: Regular, CTA Bilaterally Gastrointestinal: Yes: Normal Bowel Sounds, Soft. No: Abdomen, Obese, Ascites ...Rectal Exam: Yes: Deferred Renal/: No: Anuria, Bladder Distention, CVA Tenderness - Right Breast(s): Yes: WNL Musculoskeletal: Yes: WNL Extremities: Yes: WNL Edema: No Peripheral Pulses WNL: Yes Integumentary: Yes: WNL Neurological: Yes: Alert, Oriented, Cran Nerves II-XII Intact. No: Aphasia, Dysarthria, Pre-Existing Deficit, Seizure, Unresponsive ...Motor Strength: WNL Psychiatric: Yes: WNL Labs: CBC, BMP 07/05/19 05:50 07/05/19 05:50 Imaging - Results Chest X-ray: Report Reviewed Ultrasound: Report Reviewed (No hydronephrosis, renal cysts) EKG: Report Reviewed Problem List - Problems (1) DAVID (acute kidney injury) Assessment/Plan: Creat improved with IV hydration. Will follow as outpatient. Problems reviewed: Yes Code(s): N17.9 - ACUTE KIDNEY FAILURE, UNSPECIFIED (2) UTI (urinary tract infection) Assessment/Plan: Will change to po antibiotics, Ceftin 500 bid Elevated WBC-will follow as out patient. Problems reviewed: Yes Code(s): N39.0 - URINARY TRACT INFECTION, SITE NOT SPECIFIED Qualifiers: Urinary tract infection type: site unspecified (3) Hypokalemia Assessment/Plan: wILL REPLACE k po. f/U OUTPT. Problems reviewed: Yes Code(s): E87.6 - HYPOKALEMIA (4) Hypotension Assessment/Plan: bp IMPROVED WITH iv FLUIDS. wILL HOLD OFF ANTI htn MEDS AND FOLLOW IN THE OFFICE. dUE TO PREVIOUS FALLS WILL TRY TO KEEP bp < 150/85 Problems reviewed: Yes Code(s): I95.9 - HYPOTENSION, UNSPECIFIED Qualifiers: Hypotension type: unspecified hypotension type Qualified Code(s): I95.9 - Hypotension, unspecified (5) Kidney stone on left side Assessment/Plan: fOLLOW UP WITH UROLOGY Code(s): N20.0 - CALCULUS OF KIDNEY
--- NOTE | 2019-07-05 12:15 | DS ---
Physical Examination Vital Signs: Vital Signs Temperature 98.9 F 07/05/19 11:10 Pulse Rate 68 07/05/19 11:10 Respiratory Rate 22 H 07/05/19 11:10 Blood Pressure 154/84 07/05/19 11:10 O2 Sat by Pulse Oximetry (%) 96 07/05/19 09:45 Constitutional: Yes: No Distress, Calm Eyes: Yes: Conjunctiva Clear, EOM Intact HENT: Yes: Atraumatic, Normocephalic Neck: Yes: Supple, Trachea Midline Cardiovascular: Yes: Regular Rate and Rhythm, S1, S2. No: Bradycardia, Tachycardia Respiratory: Yes: Regular, CTA Bilaterally Gastrointestinal: Yes: Normal Bowel Sounds, Soft. No: Abdomen, Obese ...Rectal Exam: Yes: Deferred Renal/: No: Anuria, Bladder Distention, CVA Tenderness - Left, CVA Tenderness - Right Breast(s): Yes: WNL Musculoskeletal: Yes: WNL Extremities: No: Amputation, Calf Tenderness Edema: No Peripheral Pulses WNL: Yes Integumentary: Yes: WNL Neurological: Yes: Alert, Oriented, Cran Nerves II-XII Intact, Unresponsive. No : Aphasia, Ataxia, Confusion, Dysarthria, Seizure Psychiatric: Yes: WNL Labs: CBC, BMP 07/05/19 05:50 07/05/19 05:50 Discharge Summary Problems reviewed: Yes Reason For Visit: ACUTE KIDNEY INJURY Current Active Problems DAVID (acute kidney injury) (Acute) Hypokalemia (Acute) Hypotension (Acute) UTI (urinary tract infection) (Acute) Condition: Stable - Instructions Referrals: Mirza Wood MD [Primary Care Provider] - Disposition: HOME - Home Medications Comprehensive Discharge Medication List: Ambulatory Orders Amlodipine Besylate/Benazepril [Lotrel 5-10 mg Capsule] 1 each PO DAILY Aspirin Coated [Ecotrin -] 81 mg PO DAILY 07/05/19 Atorvastatin Ca [Lipitor] 10 mg PO HS 07/05/19 Flaxseed Oil/Wallace 3,6,9 [Sv Flaxseed Oil 1,300 mg Sftgl] 1 each PO DAILY Multivitamin [One-Daily Multi-Vitamin] 1 each PO DAILY 07/05/19 Wallace-3S/Dha/Epa/Fish Oil [Fish Oil Wallace-3 Softgel] 1 each PO DAILY 07/05/19
== END 2019-07-05 13:31 | disposition home or self-care (01) ==
LOC: JER 14:19 → UNDOADMOB 17:54 → JERBED 17:54 → INTOOBSV 17:58 → OBSVTOIN 17:58 → JERBED 17:58 → J4W 07-05 10:06
PROVIDERS: ADMIT Internal Medicine; ATTEND Internal Medicine
DX: N17.9 Acute kidney failure, unspecified (principal); N39.0 Urinary tract infection, site not specified; E87.6 Hypokalemia; I95.9 Hypotension, unspecified; I10 Essential (primary) hypertension; E78.00 Pure hypercholesterolemia, unspecified; G20 Parkinson's disease; F02.80 Dementia in other diseases classified elsewhere, unspecified severity, without behavioral disturbance, psychotic disturbance, mood disturbance, and anxiety; G30.9 Alzheimer's disease, unspecified; G35 Multiple sclerosis; G62.9 Polyneuropathy, unspecified; Z86.73 Personal history of transient ischemic attack (TIA), and cerebral infarction without residual deficits; Z87.891 Personal history of nicotine dependence; Z87.442 Personal history of urinary calculi; Z98.890 Other specified postprocedural states
CPT/HCPCS: 36415; 71046-TC-FY; 76775-TC; 80053; 81003; 84484; 85025; 87077; 87086; 93005; 93010; 96365; 99284-25; G0378; J7030

== ENCOUNTER 2020-07-31 17:22 | Emergency (ER) | payer OTHER ==
[2020-07-31 17:29] VITALS: TEMP 97.9; BMI 24.9
[2020-07-31] MEDS ORDERED: morphine CARPU-JECT 2 MG/1 ML DISP.SYRIN IVPUSH ONE (19:40)
[2020-07-31 19:41] LABS: BASO % 0.4 % (0-2.0); EOS % 0.3 % (0-4.5); HEMATOCRIT 41.3 % (35.4-49); LYMPH % 6.3 % (8-40); MCH 30.6 pg (25.7-33.7); MCHC 33.9 g/dl (32.0-35.9); MEAN CELL VOLUME 90.2 fl (80-96); MEAN PLT VOLUME 9.9 fl (7.5-11.1); MONO % 6.3 % (3.8-10.2); NEUT % 86.7 % (42.8-82.8); PLATELET COUNT 190 K/MM3 (134-434); RBC 4.57 M/mm3 (4.00-5.60); RDW 14.1 % (11.9-15.9); WHITE BLOOD COUNT 10.5 K/mm3 (4.0-10.0)
[2020-07-31] MEDS ORDERED: MORPHINE SULFATE 2 MG/ML VIAL ONE (20:05)
[2020-07-31 20:07] LABS: CHLORIDE 104 mmol/L (98-107); POTASSIUM 3.9 mmol/L (3.5-5.1); SODIUM 138 mmol/L (136-145)
[2020-07-31 20:10] LABS: ALBUMIN 3.7 g/dl (3.4-5.0); ANION GAP 7 MMOL/L (8-16); BLOOD UREA NITROGEN 27.1 mg/dL (7-18); CO2 27 mmol/L (21-32); GLUCOSE,RANDOM 103 mg/dL (74-106); MAGNESIUM 2.4 mg/dL (1.8-2.4)
[2020-07-31 20:13] LABS: CREATININE 1.1 mg/dL (0.55-1.3); SGOT/AST 42 U/L (15-37); SGPT/ALT 26 U/L (13-61)
[2020-07-31 20:14] LABS: BILIRUBIN,TOTAL 0.6 mg/dL (0.2-1)
[2020-07-31 20:15] LABS: TOT PROT 7.4 g/dl (6.4-8.2)
[2020-07-31 20:16] LABS: ALK PHOS 86 U/L (45-117)
[2020-07-31 21:56] LABS: EPI CELLS 7 /uL (0-25.1); HYALINE CASTS 1 /uL (0-3.1); URINE APPEARANCE CLEAR; URINE BACTERIA 1403 /uL (0-1359); URINE BILIRUBIN NEGATIVE (NEGATIVE); URINE COLOR YELLOW; URINE GLUCOSE (UA) TRACE (NEGATIVE); URINE KETONE 1+ (NEGATIVE); URINE LEUK ESTERASE NEGATIVE (NEGATIVE); URINE NITRITE NEGATIVE (NEGATIVE); URINE PROTEIN 2+ (NEGATIVE); URINE RBC 5 /uL (0-23.9); URINE UROBILINOGEN 0.2 mg/dL (0.2-1.0); URINE WBC 24 /uL (0-25.8)
[2020-07-31] MEDS ORDERED: morphine CARPU-JECT 4 MG/1 ML DISP.SYRIN IVPUSH ONE (22:20)
[2020-07-31] MEDS ORDERED: morphine SULFATE 4 MG/ML VIAL ONE (22:39)
[2020-08-01 00:10] VITALS: BP 185/102
[2020-08-01 00:13] VITALS: PULSE 79
== END 2020-08-01 00:13 | disposition short-term general hospital (02) ==
LOC: JER 17:22
PROC: 3E033NZ Introduction of Analgesics, Hypnotics, Sedatives into Peripheral Vein, Percutaneous Approach (ICD-10-PCS; principal; 2020-07-31)
PROC: 3E033GC Introduction of Other Therapeutic Substance into Peripheral Vein, Percutaneous Approach (ICD-10-PCS; 2020-07-31)
DX: S42.102A Fracture of unspecified part of scapula, left shoulder, initial encounter for closed fracture (principal); S22.42XA Multiple fractures of ribs, left side, initial encounter for closed fracture; I10 Essential (primary) hypertension
CPT/HCPCS: 36415; 70450-TC; 71046-TC-FY; 71250-TC; 72125-TC; 73200-TC-RT; 80053; 81003; 82550; 82553; 83735; 84484; 85025; 87086; 93005; 93010; 99291; 99292

== ENCOUNTER 2022-05-07 18:00 | Observation (INO) | payer BC, OTHER ==
[2022-05-07] MEDS ORDERED: LIDOCAINE 1%/EPI 1:100000 (20 ML MULTI DOSE VIAL) ONE (19:33)
[2022-05-07] MEDS ORDERED: LIDOCAINE 2%/EPINEPHRINE 1:100000 (50 ML MD VIAL) INF ONE (19:33)
[2022-05-07 20:23] LABS: BASO % 0.7 % (0-2.0); EOS % 0.9 % (0-4.5); HEMATOCRIT 38.5 % (35.4-49); HEMOGLOBIN 12.8 GM/dL (11.7-16.9); LYMPH % 11.2 % (8-40); MCH 28.8 pg (25.7-33.7); MCHC 33.2 g/dl (32.0-35.9); MEAN CELL VOLUME 86.8 fl (80-96); MEAN PLT VOLUME 8.5 fl (7.5-11.1); MONO % 7.3 % (3.8-10.2); NEUT % 79.9 % (42.8-82.8); PLATELET COUNT 231 10^3/uL (134-434); RBC 4.43 M/mm3 (4.00-5.60); RDW 15.1 % (11.9-15.9); WHITE BLOOD COUNT 6.9 K/mm3 (4.0-10.0)
[2022-05-07 20:30] LABS: INR 0.97 (0.83-1.09); PROTHROMBIN TIME (PATIENT) 11.2 SEC (9.7-13.0)
[2022-05-07 20:45] LABS: ALBUMIN 3.4 g/dl (3.4-5.0); BLOOD UREA NITROGEN 34.6 mg/dL (7-18); CALCIUM 9.3 mg/dL (8.5-10.1)
[2022-05-07 20:48] LABS: CREATININE 1.3 mg/dL (0.55-1.3)
[2022-05-07 20:50] LABS: BILIRUBIN,TOTAL 0.4 mg/dL (0.2-1); TOT PROT 6.8 g/dl (6.4-8.2)
[2022-05-07] MEDS ORDERED: DIPHTH,PERTUSS(ACELL),TET 0.5 ML DISP.SYRIN IM ONE ×2 (21:34→22:40)
[2022-05-07 21:51] LABS: PH,URINE 6.5 (5.0-8.0); URINE APPEARANCE CLEAR; URINE BILIRUBIN NEGATIVE (NEGATIVE); URINE COLOR YELLOW; URINE GLUCOSE (UA) TRACE (NEGATIVE); URINE KETONE NEGATIVE (NEGATIVE); URINE LEUK ESTERASE NEGATIVE (NEGATIVE); URINE NITRITE NEGATIVE (NEGATIVE); URINE PROTEIN TRACE (NEGATIVE); URINE UROBILINOGEN 0.2 mg/dL (0.2-1.0)
[2022-05-07] MEDS ORDERED: hydrALAZINE HCL 20 MG/ML VIAL IVPUSH ONE (22:59)
[2022-05-08] MEDS ORDERED: LISINOPRIL 5 MG TABLET PO ONE (00:28)
[2022-05-08] MEDS ORDERED: LORazepam 2 MG/ML SDV VIAL IVPUSH ONE (02:17)
[2022-05-08] MEDS ORDERED: SODIUM ZIRCONIUM CYCLOSILICATE (LOKELMA) 5 GM PACKET PO ONE (02:27)
[2022-05-08] MEDS ORDERED: DEXTROSE 50%-WATER 25 GM/50 ML DISP.SYRIN IVPUSH ONE (02:27)
[2022-05-08] MEDS ORDERED: CALCIUM GLUCONATE 10% - 1,000 MG/10 ML VIAL IVPB ONE (02:29)
[2022-05-08] MEDS ORDERED: INSULIN REGULAR HUMAN 100 UNITS/ML *VIAL IVPUSH ONE (02:29)
[2022-05-08 03:50] VITALS: BMI 20.2
[2022-05-08] MEDS: amLODIPine BESYLATE 5 MG TABLET (FP) PO SCH (06:36)
[2022-05-08] MEDS: SODIUM CHLORIDE 1,000 ML IV SCH (06:37)
[2022-05-08 07:46] LABS: BASO % 0.6 % (0-2.0); EOS % 1.6 % (0-4.5); HEMATOCRIT 39.2 % (35.4-49); HEMOGLOBIN 13.1 GM/dL (11.7-16.9); LYMPH % 17.9 % (8-40); MCH 28.7 pg (25.7-33.7); MCHC 33.3 g/dl (32.0-35.9); MEAN CELL VOLUME 86.1 fl (80-96); MONO % 10.5 % (3.8-10.2); NEUT % 69.4 % (42.8-82.8); PLATELET COUNT 245 10^3/uL (134-434); RBC 4.55 M/mm3 (4.00-5.60); RDW 14.6 % (11.9-15.9); WHITE BLOOD COUNT 7.7 K/mm3 (4.0-10.0)
[2022-05-08 08:33] LABS: ALBUMIN 3.6 g/dl (3.4-5.0); BLOOD UREA NITROGEN 26.6 mg/dL (7-18); MAGNESIUM 2.6 mg/dL (1.8-2.4)
[2022-05-08 08:36] LABS: CREATININE 1.1 mg/dL (0.55-1.3); PHOSPHOROUS 3.4 mg/dL (2.5-4.9)
[2022-05-08 08:37] LABS: BILIRUBIN,TOTAL 0.7 mg/dL (0.2-1); TOT PROT 6.7 g/dl (6.4-8.2)
[2022-05-08] MEDS ORDERED: ENOXAPARIN NA (PORCINE) 40 MG/0.4 ML DISP.SYRIN SQ SCH (10:00)
[2022-05-08] MEDS ORDERED: QUEtiapine FUMARATE 25 MG TABLET PO ONE (17:25)
[2022-05-08] MEDS ORDERED: LISINOPRIL 10 MG TABLET PO SCH (22:00)
[2022-05-08] MEDS: ATORVASTATIN CA 10 MG TABLET (FP) PO SCH (22:35)
[2022-05-09] MEDS: SODIUM CHLORIDE 1,000 ML IV SCH ×2 (07:14→10:30)
[2022-05-09] MEDS: amLODIPine BESYLATE 5 MG TABLET (FP) PO SCH (07:14)
[2022-05-09 09:28] LABS: ALBUMIN 3.1 g/dl (3.4-5.0); BLOOD UREA NITROGEN 22.8 mg/dL (7-18); CALCIUM 8.7 mg/dL (8.5-10.1); MAGNESIUM 2.6 mg/dL (1.8-2.4)
[2022-05-09 09:33] LABS: BILIRUBIN,TOTAL 0.7 mg/dL (0.2-1); TOT PROT 6.2 g/dl (6.4-8.2)
[2022-05-09 09:35] LABS: BASO % 0.8 % (0-2.0); HEMATOCRIT 39.8 % (35.4-49); HEMOGLOBIN 12.9 GM/dL (11.7-16.9); LYMPH % 17.3 % (8-40); MCH 28.2 pg (25.7-33.7); MCHC 32.4 g/dl (32.0-35.9); MONO % 11.9 % (3.8-10.2); PLATELET COUNT 230 10^3/uL (134-434); RBC 4.57 M/mm3 (4.00-5.60); RDW 14.9 % (11.9-15.9); WHITE BLOOD COUNT 5.1 K/mm3 (4.0-10.0)
[2022-05-09] MEDS: TAMSULOSIN HCL 0.4 MG CAP PO SCH (10:29)
[2022-05-09] MEDS: DONEPEZIL HCL 10 MG TABLET (FP) PO SCH (10:30)
[2022-05-09] MEDS: ENOXAPARIN NA (PORCINE) 40 MG/0.4 ML DISP.SYRIN SQ SCH (10:30)
[2022-05-09] MEDS ORDERED: amLODIPine BESYLATE 5 MG TABLET (FP) PO ONE (12:45)
[2022-05-09] MEDS: LISINOPRIL 10 MG TABLET PO SCH (21:58)
[2022-05-09] MEDS: ATORVASTATIN CA 10 MG TABLET (FP) PO SCH (21:58)
[2022-05-09] MEDS: QUEtiapine FUMARATE 25 MG TABLET PO SCH (21:58)
[2022-05-10] MEDS: amLODIPine BESYLATE 10 MG TABLET (FP) PO SCH (06:21)
[2022-05-10] MEDS ORDERED: amLODIPine BESYLATE 5 MG TABLET (FP) PO SCH (07:00)
[2022-05-10 10:19] LABS: BASO % 0.4 % (0-2.0); EOS % 1.1 % (0-4.5); HEMATOCRIT 39.3 % (35.4-49); HEMOGLOBIN 12.7 GM/dL (11.7-16.9); LYMPH % 10.5 % (8-40); MCH 28.3 pg (25.7-33.7); MCHC 32.4 g/dl (32.0-35.9); MEAN CELL VOLUME 87.3 fl (80-96); MEAN PLT VOLUME 9.1 fl (7.5-11.1); MONO % 7.1 % (3.8-10.2); NEUT % 80.9 % (42.8-82.8); PLATELET COUNT 220 10^3/uL (134-434); RDW 14.9 % (11.9-15.9); WHITE BLOOD COUNT 8.3 K/mm3 (4.0-10.0)
[2022-05-10] MEDS: ENOXAPARIN NA (PORCINE) 40 MG/0.4 ML DISP.SYRIN SQ SCH (10:49)
[2022-05-10 10:50] LABS: BLOOD UREA NITROGEN 21.6 mg/dL (7-18); MAGNESIUM 2.4 mg/dL (1.8-2.4)
[2022-05-10] MEDS: DONEPEZIL HCL 10 MG TABLET (FP) PO SCH (10:50)
[2022-05-10] MEDS: TAMSULOSIN HCL 0.4 MG CAP PO SCH (10:50)
[2022-05-10 10:53] LABS: CREATININE 1.1 mg/dL (0.55-1.3)
[2022-05-10 10:55] LABS: BILIRUBIN,TOTAL 0.6 mg/dL (0.2-1); TOT PROT 6.2 g/dl (6.4-8.2)
[2022-05-10] MEDS: QUEtiapine FUMARATE 25 MG TABLET PO SCH (21:10)
[2022-05-10] MEDS: ATORVASTATIN CA 10 MG TABLET (FP) PO SCH (21:11)
[2022-05-10] MEDS: LISINOPRIL 10 MG TABLET PO SCH (21:11)
[2022-05-11] MEDS: amLODIPine BESYLATE 10 MG TABLET (FP) PO SCH (07:16)
[2022-05-11] MEDS: SODIUM CHLORIDE 1,000 ML IV SCH (07:17)
[2022-05-11 09:23] LABS: BASO % 0.3 % (0-2.0); EOS % 0.9 % (0-4.5); HEMATOCRIT 38.8 % (35.4-49); HEMOGLOBIN 12.9 GM/dL (11.7-16.9); LYMPH % 10.1 % (8-40); MCH 28.5 pg (25.7-33.7); MCHC 33.2 g/dl (32.0-35.9); MEAN CELL VOLUME 85.9 fl (80-96); MONO % 7.1 % (3.8-10.2); NEUT % 81.6 % (42.8-82.8); PLATELET COUNT 213 10^3/uL (134-434); RBC 4.52 M/mm3 (4.00-5.60); RDW 14.3 % (11.9-15.9); WHITE BLOOD COUNT 9.1 K/mm3 (4.0-10.0)
[2022-05-11 09:41] LABS: CALCIUM 9.2 mg/dL (8.5-10.1)
[2022-05-11 09:42] LABS: ALBUMIN 3.2 g/dl (3.4-5.0); MAGNESIUM 2.4 mg/dL (1.8-2.4)
[2022-05-11 09:45] LABS: CREATININE 1.1 mg/dL (0.55-1.3)
[2022-05-11 09:47] LABS: BILIRUBIN,TOTAL 0.8 mg/dL (0.2-1); TOT PROT 6.7 g/dl (6.4-8.2)
[2022-05-11] MEDS: DONEPEZIL HCL 10 MG TABLET (FP) PO SCH (10:17)
[2022-05-11] MEDS: ENOXAPARIN NA (PORCINE) 40 MG/0.4 ML DISP.SYRIN SQ SCH (10:17)
[2022-05-11] MEDS: TAMSULOSIN HCL 0.4 MG CAP PO SCH (10:17)
[2022-05-11] MEDS ORDERED: QUEtiapine FUMARATE 25 MG TABLET PO ONE (10:32)
[2022-05-11] MEDS: AMINO ACIDS/PROTEIN HYDROLYS 30 ML LIQUID.PKT PO SCH (18:12)
[2022-05-11] MEDS: QUEtiapine FUMARATE 25 MG TABLET PO SCH (21:00)
[2022-05-11] MEDS: ATORVASTATIN CA 10 MG TABLET (FP) PO SCH (21:37)
[2022-05-11] MEDS: LISINOPRIL 10 MG TABLET PO SCH (21:38)
[2022-05-12] MEDS: amLODIPine BESYLATE 10 MG TABLET (FP) PO SCH (06:33)
[2022-05-12] MEDS: AMINO ACIDS/PROTEIN HYDROLYS 30 ML LIQUID.PKT PO SCH ×2 (08:18→17:32)
[2022-05-12] MEDS: TAMSULOSIN HCL 0.4 MG CAP PO SCH (08:18)
[2022-05-12] MEDS: QUEtiapine FUMARATE 25 MG TABLET PO SCH ×2 (08:21→21:46)
[2022-05-12] MEDS: ENOXAPARIN NA (PORCINE) 40 MG/0.4 ML DISP.SYRIN SQ SCH (10:02)
[2022-05-12] MEDS: DONEPEZIL HCL 10 MG TABLET (FP) PO SCH (10:02)
[2022-05-12 10:18] LABS: BASO % 0.6 % (0-2.0); EOS % 1.3 % (0-4.5); HEMATOCRIT 35.2 % (35.4-49); HEMOGLOBIN 11.8 GM/dL (11.7-16.9); LYMPH % 12.5 % (8-40); MCH 28.7 pg (25.7-33.7); MCHC 33.6 g/dl (32.0-35.9); MEAN CELL VOLUME 85.5 fl (80-96); MONO % 8.1 % (3.8-10.2); NEUT % 77.5 % (42.8-82.8); PLATELET COUNT 199 10^3/uL (134-434); RBC 4.12 M/mm3 (4.00-5.60); RDW 14.5 % (11.9-15.9); WHITE BLOOD COUNT 7.3 K/mm3 (4.0-10.0)
[2022-05-12 10:37] LABS: CALCIUM 8.5 mg/dL (8.5-10.1)
[2022-05-12 10:38] LABS: ALBUMIN 2.7 g/dl (3.4-5.0); BLOOD UREA NITROGEN 22.6 mg/dL (7-18); MAGNESIUM 2.4 mg/dL (1.8-2.4)
[2022-05-12 10:41] LABS: CREATININE 1.2 mg/dL (0.55-1.3)
[2022-05-12 10:42] LABS: BILIRUBIN,TOTAL 0.5 mg/dL (0.2-1); TOT PROT 5.6 g/dl (6.4-8.2)
[2022-05-12] MEDS: LISINOPRIL 10 MG TABLET PO SCH (21:46)
[2022-05-12] MEDS: ATORVASTATIN CA 10 MG TABLET (FP) PO SCH (21:46)
[2022-05-13] MEDS: amLODIPine BESYLATE 10 MG TABLET (FP) PO SCH (06:07)
[2022-05-13] MEDS: DONEPEZIL HCL 10 MG TABLET (FP) PO SCH (09:21)
[2022-05-13] MEDS: ENOXAPARIN NA (PORCINE) 40 MG/0.4 ML DISP.SYRIN SQ SCH (09:21)
[2022-05-13] MEDS: AMINO ACIDS/PROTEIN HYDROLYS 30 ML LIQUID.PKT PO SCH ×2 (09:21→17:02)
[2022-05-13] MEDS: TAMSULOSIN HCL 0.4 MG CAP PO SCH (09:21)
[2022-05-13] MEDS: QUEtiapine FUMARATE 25 MG TABLET PO SCH ×2 (09:21→21:05)
[2022-05-13 09:53] LABS: BASO % 0.5 % (0-2.0); EOS % 2.4 % (0-4.5); HEMATOCRIT 38.9 % (35.4-49); HEMOGLOBIN 12.7 GM/dL (11.7-16.9); LYMPH % 13.8 % (8-40); MCH 28.2 pg (25.7-33.7); MCHC 32.6 g/dl (32.0-35.9); MEAN CELL VOLUME 86.5 fl (80-96); MEAN PLT VOLUME 9.2 fl (7.5-11.1); MONO % 8.4 % (3.8-10.2); NEUT % 74.9 % (42.8-82.8); PLATELET COUNT 226 10^3/uL (134-434); RDW 14.6 % (11.9-15.9); WHITE BLOOD COUNT 7.3 K/mm3 (4.0-10.0)
[2022-05-13 10:20] LABS: BLOOD UREA NITROGEN 26.9 mg/dL (7-18)
[2022-05-13 10:21] LABS: ALBUMIN 3.2 g/dl (3.4-5.0); MAGNESIUM 2.4 mg/dL (1.8-2.4)
[2022-05-13 10:24] LABS: CREATININE 1.1 mg/dL (0.55-1.3)
[2022-05-13 10:26] LABS: BILIRUBIN,TOTAL 0.5 mg/dL (0.2-1); TOT PROT 6.6 g/dl (6.4-8.2)
[2022-05-13] MEDS: ATORVASTATIN CA 10 MG TABLET (FP) PO SCH (21:05)
[2022-05-13] MEDS: LISINOPRIL 10 MG TABLET PO SCH (21:05)
[2022-05-13] MEDS ORDERED: LORazepam 2 MG/ML SDV VIAL IM ONE (23:16)
[2022-05-14] MEDS: amLODIPine BESYLATE 10 MG TABLET (FP) PO SCH (06:53)
[2022-05-14 07:19] VITALS: BP 153/100; PULSE 94; RESP 20; TEMP 97.8
== END 2022-05-14 09:04 ==
LOC: JER 18:00 → JERBED 20:39 → J4W 05-08 02:04 → J8W 05-08 20:22
PROVIDERS: ADMIT Internal Medicine; ATTEND Nurse Practitioner Family
PROC: 3E033GC Introduction of Other Therapeutic Substance into Peripheral Vein, Percutaneous Approach (ICD-10-PCS; principal; 2022-05-07)
PROC: 3E0234Z Introduction of Serum, Toxoid and Vaccine into Muscle, Percutaneous Approach (ICD-10-PCS; 2022-05-07)
PROC: 3E023GC Introduction of Other Therapeutic Substance into Muscle, Percutaneous Approach (ICD-10-PCS; 2022-05-07)
PROC: 3E033NZ Introduction of Analgesics, Hypnotics, Sedatives into Peripheral Vein, Percutaneous Approach (ICD-10-PCS; 2022-05-07)
DX: G93.41 Metabolic encephalopathy (principal); F03.90 Unspecified dementia, unspecified severity, without behavioral disturbance, psychotic disturbance, mood disturbance, and anxiety; E78.5 Hyperlipidemia, unspecified; R55 Syncope and collapse; N40.0 Benign prostatic hyperplasia without lower urinary tract symptoms; I10 Essential (primary) hypertension; W18.39XA Other fall on same level, initial encounter; Y93.89 Activity, other specified; Y92.89 Other specified places as the place of occurrence of the external cause; Z29.8 Encounter for other specified prophylactic measures; N20.0 Calculus of kidney; Z87.891 Personal history of nicotine dependence
CPT/HCPCS: 36415; 70450-TC; 70486-TC; 70551-TC; 71045-TC-FY; 72125-TC; 80053; 80061; 81003; 82136; 82550; 82607; 83735; 83918; 84100; 84443; 84484; 85025; 85610; 86780; 87086; 87186; 90715; 93005; 93010; 93306-TC; 96372; 96374; 96375; 97116-GP; 97161-GP; 99285-25; C9803-CS; G0378; U0003; U0005

== ENCOUNTER 2022-07-14 22:11 | Inpatient (IN) | payer OTHER ==
[2022-07-14 22:21] VITALS: BMI 25.2
[2022-07-14] MEDS ORDERED: ACETAMINOPHEN 1000 MG/100 ML BAG IVPB ONE (23:34)
[2022-07-15] MEDS ORDERED: ACETAMINOPHEN INJECTION 100 ML IVPB ONE (00:32)
[2022-07-15 00:51] LABS: HEMATOCRIT 36.8 % (35.4-49); HEMOGLOBIN 12.3 GM/dL (11.7-16.9); MCH 28.7 pg (25.7-33.7); MCHC 33.4 g/dl (32.0-35.9); MEAN CELL VOLUME 86.1 fl (80-96); MEAN PLT VOLUME 8.9 fl (7.5-11.1); PLATELET COUNT 219 10^3/uL (134-434); RBC 4.28 M/mm3 (4.00-5.60)
[2022-07-15 01:06] LABS: ALBUMIN 3.8 g/dl (3.4-5.0)
[2022-07-15 01:07] LABS: BLOOD UREA NITROGEN 28.2 mg/dL (7-18)
[2022-07-15 01:10] LABS: CREATININE 1.4 mg/dL (0.55-1.3)
[2022-07-15 01:11] LABS: BILIRUBIN,TOTAL 0.9 mg/dL (0.2-1); TOT PROT 7.4 g/dl (6.4-8.2)
[2022-07-15 01:26] LABS: INR 1.08 (0.83-1.09); PROTHROMBIN TIME (PATIENT) 12.4 SEC (9.7-13.0)
[2022-07-15 05:37] LABS: ANISOCYTOSIS 3+; MACROCYTOSIS 0
[2022-07-15 08:31] LABS: EPI CELLS 16 /uL (0-25.1); HYALINE CASTS 1 /uL (0-3.1); PH,URINE 7.5 (5.0-8.0); URINE APPEARANCE CLEAR; URINE BACTERIA 242 /uL (0-1359); URINE BILIRUBIN NEGATIVE (NEGATIVE); URINE COLOR YELLOW; URINE GLUCOSE (UA) NEGATIVE (NEGATIVE); URINE KETONE TRACE (NEGATIVE); URINE LEUK ESTERASE NEGATIVE (NEGATIVE); URINE NITRITE NEGATIVE (NEGATIVE); URINE PROTEIN 1+ (NEGATIVE); URINE RBC 5 /uL (0-23.9); URINE UROBILINOGEN 0.2 mg/dL (0.2-1.0); URINE WBC 19 /uL (0-25.8)
[2022-07-15] MEDS: LACTATED RINGERS SOLUTION 1,000 ML/1,000 ML INFUS.BAG IV SCH (08:39)
[2022-07-15] MEDS ORDERED: TAMSULOSIN HCL 0.4 MG CAP ONE (08:40)
[2022-07-15] MEDS ORDERED: amLODIPine BESYLATE 10 MG TABLET (FP) ONE (08:40)
[2022-07-15] MEDS: amLODIPine BESYLATE 10 MG TABLET (FP) PO SCH (08:45)
[2022-07-15] MEDS: TAMSULOSIN HCL 0.4 MG CAP PO SCH (08:46)
[2022-07-15] MEDS: MIRTAZAPINE 15 MG TABLET (FP) PO SCH (15:40)
[2022-07-15] MEDS: HEPARIN NA (PORCINE) 5,000 UNITS/ML 1ML VIAL SQ SCH ×2 (15:40→22:53)
[2022-07-15] MEDS: METOPROLOL TARTRATE 25 MG TABLET (FP) PO SCH ×2 (17:31→22:54)
[2022-07-15] MEDS: LISINOPRIL 10 MG TABLET PO SCH (22:54)
[2022-07-15] MEDS: ATORVASTATIN CA 10 MG TABLET (FP) PO SCH (22:54)
[2022-07-16] MEDS: amLODIPine BESYLATE 10 MG TABLET (FP) PO SCH (06:57)
[2022-07-16] MEDS: LACTATED RINGERS SOLUTION 1,000 ML/1,000 ML INFUS.BAG IV SCH (06:57)
[2022-07-16] MEDS ORDERED: LACTATED RINGERS SOLUTION 1,000 ML/1,000 ML INFUS.BAG IV SCH (07:24)
[2022-07-16] MEDS ORDERED: ACETAMINOPHEN 1000 MG/100 ML BAG IVPB PRN (08:24)
[2022-07-16 09:09] LABS: BASO % 0.1 % (0-2.0); HEMATOCRIT 36.4 % (35.4-49); LYMPH % 3.5 % (8-40); MCH 28.6 pg (25.7-33.7); MCHC 33.1 g/dl (32.0-35.9); MEAN CELL VOLUME 86.5 fl (80-96); MEAN PLT VOLUME 9.6 fl (7.5-11.1); MONO % 6.4 % (3.8-10.2); PLATELET COUNT 175 10^3/uL (134-434); RBC 4.21 M/mm3 (4.00-5.60); RDW 15.3 % (11.9-15.9); WHITE BLOOD COUNT 11.5 K/mm3 (4.0-10.0)
[2022-07-16 09:16] LABS: ALBUMIN 3.3 g/dl (3.4-5.0); CALCIUM 8.8 mg/dL (8.5-10.1)
[2022-07-16 09:17] LABS: BLOOD UREA NITROGEN 28.2 mg/dL (7-18); MAGNESIUM 2.4 mg/dL (1.8-2.4)
[2022-07-16 09:19] LABS: CREATININE 0.9 mg/dL (0.55-1.3)
[2022-07-16 09:20] LABS: PHOSPHOROUS 3.2 mg/dL (2.5-4.9)
[2022-07-16 09:21] LABS: BILIRUBIN,TOTAL 0.8 mg/dL (0.2-1)
[2022-07-16] MEDS ORDERED: REMDESIVIR 200 MG in SODIUM CHLORIDE 250 ML IVPB ONE (10:00)
[2022-07-16] MEDS ORDERED: HEPARIN NA (PORCINE) 5,000 UNITS/ML 1ML VIAL SQ SCH (10:09)
[2022-07-16] MEDS: METOPROLOL TARTRATE 25 MG TABLET (FP) PO SCH ×2 (11:11→22:26)
[2022-07-16] MEDS: MIRTAZAPINE 15 MG TABLET (FP) PO SCH (11:11)
[2022-07-16] MEDS: TAMSULOSIN HCL 0.4 MG CAP PO SCH (11:11)
[2022-07-16] MEDS: HEPARIN NA (PORCINE) 5,000 UNITS/ML 1ML VIAL SQ SCH (12:37)
[2022-07-16 16:38] LABS: BASO % 0.1 % (0-2.0); HEMATOCRIT 35.6 % (35.4-49); HEMOGLOBIN 11.7 GM/dL (11.7-16.9); LYMPH % 4.1 % (8-40); MCH 28.5 pg (25.7-33.7); MCHC 32.8 g/dl (32.0-35.9); MEAN CELL VOLUME 86.8 fl (80-96); MEAN PLT VOLUME 9.8 fl (7.5-11.1); NEUT % 87.8 % (42.8-82.8); PLATELET COUNT 163 10^3/uL (134-434); RBC 4.11 M/mm3 (4.00-5.60); RDW 15.6 % (11.9-15.9); WHITE BLOOD COUNT 10.5 K/mm3 (4.0-10.0)
[2022-07-16] MEDS: LISINOPRIL 10 MG TABLET PO SCH (22:26)
[2022-07-16] MEDS: ATORVASTATIN CA 10 MG TABLET (FP) PO SCH (22:26)
[2022-07-17] MEDS: amLODIPine BESYLATE 10 MG TABLET (FP) PO SCH (06:39)
[2022-07-17 09:41] LABS: HEMATOCRIT 34.4 % (35.4-49); HEMOGLOBIN 11.6 GM/dL (11.7-16.9); MCH 29.2 pg (25.7-33.7); MCHC 33.7 g/dl (32.0-35.9); MEAN CELL VOLUME 86.5 fl (80-96); MEAN PLT VOLUME 9.6 fl (7.5-11.1); PLATELET COUNT 56 10^3/uL (134-434); RBC 3.98 M/mm3 (4.00-5.60); RDW 14.9 % (11.9-15.9); WHITE BLOOD COUNT 8.5 K/mm3 (4.0-10.0)
[2022-07-17 09:47] LABS: INR 1.03 (0.83-1.09); PROTHROMBIN TIME (PATIENT) 11.8 SEC (9.7-13.0)
[2022-07-17 10:07] LABS: CALCIUM 8.6 mg/dL (8.5-10.1)
[2022-07-17 10:08] LABS: ALBUMIN 2.9 g/dl (3.4-5.0); MAGNESIUM 2.5 mg/dL (1.8-2.4)
[2022-07-17 10:11] LABS: CREATININE 0.8 mg/dL (0.55-1.3); PHOSPHOROUS 3.2 mg/dL (2.5-4.9)
[2022-07-17 10:13] LABS: BILIRUBIN,TOTAL 0.8 mg/dL (0.2-1); TOT PROT 6.2 g/dl (6.4-8.2)
[2022-07-17 10:28] LABS: ACTIVATED PTT 16.6 SECONDS (25.2-36.5)
[2022-07-17] MEDS: TAMSULOSIN HCL 0.4 MG CAP PO SCH (12:27)
[2022-07-17] MEDS: MIRTAZAPINE 15 MG TABLET (FP) PO SCH (12:27)
[2022-07-17] MEDS: METOPROLOL TARTRATE 25 MG TABLET (FP) PO SCH (12:27)
[2022-07-17] MEDS: REMDESIVIR 100 MG in SODIUM CHLORIDE 250 ML IVPB SCH ×3 (12:32→22:28)
[2022-07-17] MEDS ORDERED: ETOMIDATE 20 MG/10 ML VIAL IVPUSH ONE (13:29)
[2022-07-17] MEDS ORDERED: PROPOFOL 20 ML ONE (13:30)
[2022-07-17] MEDS ORDERED: FENTANYL CITRATE/PF 50 MCG/ML VIAL ONE ×4 (13:35→15:02)
[2022-07-17] MEDS ORDERED: SUCCINYLCHOLINE CHLORIDE 200 MG/10 ML SYRINGE ONE (14:28)
[2022-07-17] MEDS ORDERED: ceFAZolin SODIUM 1 GM VIAL IVPB ONE (14:44)
[2022-07-17] MEDS ORDERED: DEXAMETHASONE SOD PHOSPHATE 4 MG/1 ML VIAL ONE (15:00)
[2022-07-17] MEDS ORDERED: ONDANSETRON 4 MG/2 ML VIAL ONE (15:02)
[2022-07-17] MEDS ORDERED: ONDANSETRON 4 MG/2 ML VIAL IVPUSH PRN (15:44)
[2022-07-17] MEDS ORDERED: LACTATED RINGERS SOLUTION 1,000 ML IV SCH ×3 (15:45→18:55)
[2022-07-17] MEDS ORDERED: ACETAMINOPHEN 1000 MG/100 ML BAG IVPB ONE (15:45)
[2022-07-17] MEDS ORDERED: ACETAMINOPHEN INJECTION 100 ML IVPB ONE (17:01)
[2022-07-17] MEDS ORDERED: POTASSIUM CHLORIDE TABS 20 MEQ TABLET.ER (FP) PO ONE (17:03)
[2022-07-17] MEDS ORDERED: POTASSIUM CHLORIDE ORAL LIQUID 20 MEQ/15 ML PO ONE (17:07)
[2022-07-17] MEDS ORDERED: METOPROLOL TARTRATE 5 MG/5 ML VIAL IVPUSH ONE (17:19)
[2022-07-17] MEDS ORDERED: ESMOLOL HCL 100,000 MCG/10 ML VIAL ONE (17:23)
[2022-07-17] MEDS ORDERED: dilTIAZem HCL 25 MG/5 ML - 5 ML VIAL IVPUSH ONE (17:25)
[2022-07-17] MEDS ORDERED: SODIUM CHLORIDE 1,000 ML IV STA ×2 (17:40→18:55)
[2022-07-17 19:55] LABS: CALCIUM 8.2 mg/dL (8.5-10.1); MAGNESIUM 2.5 mg/dL (1.8-2.4)
[2022-07-17 19:56] LABS: BLOOD UREA NITROGEN 36.2 mg/dL (7-18)
[2022-07-17 19:59] LABS: CREATININE 0.9 mg/dL (0.55-1.3)
[2022-07-17] MEDS: ATORVASTATIN CA 10 MG TABLET (FP) PO SCH (21:15)
[2022-07-17] MEDS: METOPROLOL TARTRATE 50 MG TABLET (FP) PO SCH (21:15)
[2022-07-17] MEDS ORDERED: METOPROLOL TARTRATE 25 MG TABLET (FP) PO SCH ×2 (22:00)
[2022-07-17] MEDS ORDERED: METOPROLOL TARTRATE 50 MG TABLET (FP) PO SCH (22:00)
[2022-07-17] MEDS ORDERED: LISINOPRIL 10 MG TABLET PO SCH (22:00)
[2022-07-17] MEDS ORDERED: ATORVASTATIN CA 10 MG TABLET (FP) PO SCH (22:00)
[2022-07-17] MEDS: KCL 10 MEQ IVPB 10 MEQ/100 ML INFUS.BAG IVPB SCH ×2 (22:31→22:45)
[2022-07-17] MEDS ORDERED: CEFAZOLIN SODIUM 2 GM in DEXTROSE 5%-WATER 100 ML IVPB SCH (23:00)
[2022-07-17] MEDS: CEFAZOLIN SODIUM 2 GM in DEXTROSE 5%-WATER 100 ML IVPB SCH (23:00)
[2022-07-18] MEDS: CEFAZOLIN SODIUM 2 GM in DEXTROSE 5%-WATER 100 ML IVPB SCH ×2 (06:39→17:15)
[2022-07-18] MEDS ORDERED: amLODIPine BESYLATE 10 MG TABLET (FP) PO SCH (07:00)
[2022-07-18 08:23] LABS: HEMATOCRIT 31.1 % (35.4-49); HEMOGLOBIN 10.4 GM/dL (11.7-16.9); MCH 28.7 pg (25.7-33.7); MCHC 33.3 g/dl (32.0-35.9); MEAN CELL VOLUME 86.2 fl (80-96); MEAN PLT VOLUME 10.2 fl (7.5-11.1); PLATELET COUNT 156 10^3/uL (134-434); RBC 3.61 M/mm3 (4.00-5.60); RDW 15.3 % (11.9-15.9); WHITE BLOOD COUNT 6.5 K/mm3 (4.0-10.0)
[2022-07-18] MEDS ORDERED: TAMSULOSIN HCL 0.4 MG CAP PO SCH (08:30)
[2022-07-18 08:56] LABS: CALCIUM 8.1 mg/dL (8.5-10.1)
[2022-07-18 08:57] LABS: ALBUMIN 2.5 g/dl (3.4-5.0); MAGNESIUM 2.5 mg/dL (1.8-2.4)
[2022-07-18 09:00] LABS: CREATININE 0.9 mg/dL (0.55-1.3); PHOSPHOROUS 3.4 mg/dL (2.5-4.9)
[2022-07-18 09:01] LABS: BILIRUBIN,TOTAL 0.9 mg/dL (0.2-1); TOT PROT 5.5 g/dl (6.4-8.2)
[2022-07-18] MEDS: TAMSULOSIN HCL 0.4 MG CAP PO SCH (09:17)
[2022-07-18] MEDS ORDERED: ENOXAPARIN NA (PORCINE) 40 MG/0.4 ML DISP.SYRIN SQ SCH ×2 (10:00→15:00)
[2022-07-18] MEDS ORDERED: REMDESIVIR 100 MG in SODIUM CHLORIDE 250 ML IVPB SCH (10:00)
[2022-07-18] MEDS ORDERED: MIRTAZAPINE 15 MG TABLET (FP) PO SCH (10:00)
[2022-07-18] MEDS: MIRTAZAPINE 15 MG TABLET (FP) PO SCH (11:30)
[2022-07-18] MEDS: METOPROLOL TARTRATE 50 MG TABLET (FP) PO SCH ×2 (11:31→21:39)
[2022-07-18] MEDS: ASPIRIN 81 MG CHEWABLE TABLETS PO SCH (17:15)
[2022-07-18] MEDS: ATORVASTATIN CA 10 MG TABLET (FP) PO SCH (21:39)
[2022-07-18] MEDS: REMDESIVIR 100 MG in SODIUM CHLORIDE 250 ML IVPB SCH (21:39)
[2022-07-18] MEDS ORDERED: oxyCODONE HCL 5 MG TABLET PO ONE (21:59)
[2022-07-18] MEDS ORDERED: QUEtiapine FUMARATE 25 MG TABLET PO ONE (23:08)
[2022-07-19 08:59] LABS: HEMOGLOBIN 11.4 GM/dL (11.7-16.9); MCHC 33.6 g/dl (32.0-35.9); MEAN CELL VOLUME 86.3 fl (80-96); MEAN PLT VOLUME 9.5 fl (7.5-11.1); PLATELET COUNT 179 10^3/uL (134-434); RBC 3.94 M/mm3 (4.00-5.60); RDW 14.9 % (11.9-15.9); WHITE BLOOD COUNT 7.9 K/mm3 (4.0-10.0)
[2022-07-19 09:20] LABS: BLOOD UREA NITROGEN 27.3 mg/dL (7-18); CALCIUM 8.1 mg/dL (8.5-10.1); MAGNESIUM 2.3 mg/dL (1.8-2.4)
[2022-07-19 09:24] LABS: CREATININE 0.7 mg/dL (0.55-1.3); PHOSPHOROUS 2.3 mg/dL (2.5-4.9)
[2022-07-19] MEDS: ASPIRIN 81 MG CHEWABLE TABLETS PO SCH (10:23)
[2022-07-19] MEDS: MIRTAZAPINE 15 MG TABLET (FP) PO SCH (10:23)
[2022-07-19] MEDS: METOPROLOL TARTRATE 50 MG TABLET (FP) PO SCH ×2 (10:23→21:51)
[2022-07-19] MEDS: TAMSULOSIN HCL 0.4 MG CAP PO SCH (10:24)
[2022-07-19] MEDS: ENOXAPARIN NA (PORCINE) 40 MG/0.4 ML DISP.SYRIN SQ SCH (10:24)
[2022-07-19] MEDS ORDERED: ACETAMINOPHEN 1000 MG/100 ML BAG IVPB PRN (10:27)
[2022-07-19] MEDS ORDERED: NAPH,MB-DB/K PH,MBDB POWDER PACKET PO ONE (14:58)
[2022-07-19] MEDS: oxyCODONE HCL 5 MG TABLET PO PRN (21:51)
[2022-07-19] MEDS: ATORVASTATIN CA 10 MG TABLET (FP) PO SCH (21:52)
[2022-07-20 07:37] LABS: HEMATOCRIT 31.4 % (35.4-49); HEMOGLOBIN 10.6 GM/dL (11.7-16.9); MCH 29.2 pg (25.7-33.7); MCHC 33.8 g/dl (32.0-35.9); MEAN CELL VOLUME 86.5 fl (80-96); MEAN PLT VOLUME 9.2 fl (7.5-11.1); PLATELET COUNT 188 10^3/uL (134-434); RBC 3.63 M/mm3 (4.00-5.60); WHITE BLOOD COUNT 8.2 K/mm3 (4.0-10.0)
[2022-07-20 07:52] LABS: CALCIUM 8.2 mg/dL (8.5-10.1); MAGNESIUM 2.4 mg/dL (1.8-2.4)
[2022-07-20 07:53] LABS: BLOOD UREA NITROGEN 34.2 mg/dL (7-18)
[2022-07-20 07:55] LABS: PHOSPHOROUS 3.3 mg/dL (2.5-4.9)
[2022-07-20 07:56] LABS: CREATININE 0.9 mg/dL (0.55-1.3)
[2022-07-20] MEDS: ENOXAPARIN NA (PORCINE) 40 MG/0.4 ML DISP.SYRIN SQ SCH (10:06)
[2022-07-20] MEDS: TAMSULOSIN HCL 0.4 MG CAP PO SCH (10:07)
[2022-07-20] MEDS: MIRTAZAPINE 15 MG TABLET (FP) PO SCH (10:07)
[2022-07-20] MEDS: METOPROLOL TARTRATE 50 MG TABLET (FP) PO SCH ×2 (10:07→21:51)
[2022-07-20] MEDS: ASPIRIN 81 MG CHEWABLE TABLETS PO SCH (10:07)
[2022-07-20] MEDS: ATORVASTATIN CA 10 MG TABLET (FP) PO SCH (21:51)
[2022-07-21 03:55] VITALS: RESP 18
[2022-07-21 07:41] LABS: HEMATOCRIT 30.9 % (35.4-49); HEMOGLOBIN 10.4 GM/dL (11.7-16.9); MCH 28.8 pg (25.7-33.7); MCHC 33.7 g/dl (32.0-35.9); MEAN CELL VOLUME 85.5 fl (80-96); MEAN PLT VOLUME 9.3 fl (7.5-11.1); PLATELET COUNT 222 10^3/uL (134-434); RBC 3.61 M/mm3 (4.00-5.60); WHITE BLOOD COUNT 7.5 K/mm3 (4.0-10.0)
[2022-07-21 07:58] LABS: CALCIUM 7.7 mg/dL (8.5-10.1)
[2022-07-21 07:59] LABS: BLOOD UREA NITROGEN 29.9 mg/dL (7-18); MAGNESIUM 2.1 mg/dL (1.8-2.4)
[2022-07-21 08:02] LABS: CREATININE 0.8 mg/dL (0.55-1.3)
[2022-07-21] MEDS: TAMSULOSIN HCL 0.4 MG CAP PO SCH (09:12)
[2022-07-21] MEDS: ENOXAPARIN NA (PORCINE) 40 MG/0.4 ML DISP.SYRIN SQ SCH (10:12)
[2022-07-21] MEDS: MIRTAZAPINE 15 MG TABLET (FP) PO SCH (10:16)
[2022-07-21] MEDS: METOPROLOL TARTRATE 50 MG TABLET (FP) PO SCH ×2 (10:17→21:58)
[2022-07-21] MEDS: ASPIRIN 81 MG CHEWABLE TABLETS PO SCH (10:17)
[2022-07-21] MEDS: ATORVASTATIN CA 10 MG TABLET (FP) PO SCH (21:59)
[2022-07-21] MEDS: oxyCODONE HCL 5 MG TABLET PO PRN (23:48)
[2022-07-22] MEDS: MIRTAZAPINE 15 MG TABLET (FP) PO SCH (10:00)
[2022-07-22] MEDS: METOPROLOL TARTRATE 50 MG TABLET (FP) PO SCH ×2 (10:00→22:42)
[2022-07-22] MEDS: TAMSULOSIN HCL 0.4 MG CAP PO SCH (10:00)
[2022-07-22] MEDS: ASPIRIN 81 MG CHEWABLE TABLETS PO SCH (10:00)
[2022-07-22] MEDS: ENOXAPARIN NA (PORCINE) 40 MG/0.4 ML DISP.SYRIN SQ SCH (10:00)
[2022-07-22 12:09] LABS: HEMATOCRIT 30.4 % (35.4-49); HEMOGLOBIN 10.2 GM/dL (11.7-16.9); MCHC 33.5 g/dl (32.0-35.9); MEAN CELL VOLUME 86.5 fl (80-96); PLATELET COUNT 258 10^3/uL (134-434); RBC 3.52 M/mm3 (4.00-5.60); RDW 14.8 % (11.9-15.9); WHITE BLOOD COUNT 8.9 K/mm3 (4.0-10.0)
[2022-07-22 12:51] LABS: CALCIUM 8.3 mg/dL (8.5-10.1)
[2022-07-22 12:52] LABS: BLOOD UREA NITROGEN 28.9 mg/dL (7-18)
[2022-07-22 12:54] LABS: CREATININE 0.8 mg/dL (0.55-1.3)
[2022-07-22] MEDS ORDERED: DOCUSATE SODIUM 100 MG CAPSULE (FP) PO ONE (17:47)
[2022-07-22] MEDS ORDERED: ATORVASTATIN CA 10 MG TABLET (FP) PO SCH (22:00)
[2022-07-23] MEDS ORDERED: TAMSULOSIN HCL 0.4 MG CAP PO SCH (08:30)
[2022-07-23] MEDS ORDERED: ENOXAPARIN NA (PORCINE) 40 MG/0.4 ML DISP.SYRIN SQ SCH (10:00)
[2022-07-23] MEDS ORDERED: ASPIRIN 81 MG CHEWABLE TABLETS PO SCH (10:00)
[2022-07-23] MEDS ORDERED: MIRTAZAPINE 15 MG TABLET (FP) PO SCH (10:00)
[2022-07-23] MEDS: METOPROLOL TARTRATE 50 MG TABLET (FP) PO SCH (10:36)
[2022-07-23 14:30] VITALS: BP 111/65; PULSE 61; TEMP 97.9
== END 2022-07-23 16:44 | DRG 956 ==
LOC: JER 22:11 → JERBED 07-15 02:35 → J7W 07-15 14:37 → J4W 07-17 18:43 → J8W 07-22 14:57
PROVIDERS: ADMIT Internal Medicine; ATTEND Internal Medicine
PROC: XW033E5 Introduction of Remdesivir Anti-infective into Peripheral Vein, Percutaneous Approach, New Technology Group 5 (ICD-10-PCS; 2022-07-16)
PROC: 0QS606Z Reposition Right Upper Femur with Intramedullary Internal Fixation Device, Open Approach (ICD-10-PCS; principal; 2022-07-17 15:00)
DX: S72.141A Displaced intertrochanteric fracture of right femur, initial encounter for closed fracture (principal); S32.511A Fracture of superior rim of right pubis, initial encounter for closed fracture; U07.1 COVID-19; N17.9 Acute kidney failure, unspecified; I97.89 Other postprocedural complications and disorders of the circulatory system, not elsewhere classified; W18.30XA Fall on same level, unspecified, initial encounter; Y92.098 Other place in other non-institutional residence as the place of occurrence of the external cause; E78.5 Hyperlipidemia, unspecified; N40.0 Benign prostatic hyperplasia without lower urinary tract symptoms; D69.6 Thrombocytopenia, unspecified; E87.6 Hypokalemia; F03.90 Unspecified dementia, unspecified severity, without behavioral disturbance, psychotic disturbance, mood disturbance, and anxiety; R41.0 Disorientation, unspecified; Y83.8 Other surgical procedures as the cause of abnormal reaction of the patient, or of later complication, without mention of misadventure at the time of the procedure
CPT/HCPCS: 0241U-QW; 36415; 70450-TC; 71045-TC-FY; 72125-TC; 72170-TC-FY; 72192-TC; 73700-TC-RT; 76000-TC-FY; 80048; 80053; 80061; 81003; 82550; 82553; 82962; 83735; 84100; 84443; 84484; 85025; 85027; 85610; 85730; 86140; 86850; 86900; 86901; 87040; 87086; 93005; 93010; 93880-TC; 94010; 94760; 97116-GP; 97162-GP; 99285-25; C1713; C9399; C9803-CS; J1644; U0003; U0005